=== PATIENT | female | born 1965 | race Caucasian/White ===

== ENCOUNTER → 2016-12-31 | Outpatient (CLI) | payer BC ==
[2016-12-31 08:32] LABS: ABSOLUTE EOSINOPHILS # (AUTO) 0.1 10^3/uL (0.0-0.6); ABSOLUTE LYMPHOCYTES (AUTO) 1.3 10^3/uL (0.5-4.7); ABSOLUTE MONOCYTES (AUTO) 0.4 10^3/uL (0.1-1.4); BASOPHILS % (AUTO) 0.3 % (0-2); EOSINOPHILS % (AUTO) 1.2 % (0-6); HEMATOCRIT 37.6 % (36.0-47.0); HEMOGLOBIN 12.4 g/dL (12.0-15.5); HGB HCT DIFFERENCE -0.4; LYMPHOCYTES % (AUTO) 18.8 % (13-45); MEAN CORPUSCULAR HEMOGLOBIN 28.6 pg (27.0-33.4); MEAN CORPUSCULAR HGB CONC 32.9 g/dL (32.0-36.0); MEAN CORPUSCULAR VOLUME 87 fl (80-97); MONOCYTES % (AUTO) 5.3 % (3-13); RED BLOOD COUNT 4.33 10^6/uL (3.72-5.28); RED CELL DISTRIBUTION WIDTH 14.1 % (11.5-14.0); SEGMENTED NEUTROPHILS % (AUTO) 74.4 % (42-78); WHITE BLOOD COUNT 6.7 10^3/uL (4.0-10.5)
[2016-12-31 09:04] LABS: ALANINE AMINOTRANSFERASE 56 U/L (9-52); ALBUMIN 4.3 g/dL (3.5-5.0); ALKALINE PHOSPHATASE 92 U/L (38-126); ANION GAP 14 (5-19); ASPARTATE AMINO TRANSFERASE 34 U/L (14-36); BILIRUBIN,DIRECT 0.4 mg/dL (0.0-0.4); BILIRUBIN,TOTAL 0.7 mg/dL (0.2-1.3); BLOOD UREA NITROGEN 16 mg/dL (7-20); CALCIUM 9.8 mg/dL (8.4-10.2); CARBON DIOXIDE 27 mmol/L (22-30); CHLORIDE 96 mmol/L (98-107); CHOLESTEROL 157.54 mg/dL (0-200); CREATININE RESULT 0.65 mg/dL (0.52-1.25); Direct HDL 47 mg/dL (>40); GLUCOSE 237 mg/dL (75-110); POTASSIUM 4.6 mmol/L (3.6-5.0); TOTAL PROTEIN 7.3 g/dL (6.3-8.2); TRIGLYCERIDES 196 mg/dL (<150)
[2016-12-31 09:15] LABS: DIRECT LDL 78 mg/dL (<100)
[2016-12-31 09:19] LABS: VLDL CHOLESTEROL 39.2 mg/dL (10-31)
[2017-01-01 10:38] LABS: CREATININE URINE 82.1 mg/dL (Not Estab.); MICROALBUMIN URINE 3.2 ug/mL (Not Estab.)
== END ==
LOC: OD 07:08
PROVIDERS: ATTEND Family Medicine Geriatric Medicine
DX: E11.9 Type 2 diabetes mellitus without complications (principal); I10 Essential (primary) hypertension; E78.5 Hyperlipidemia, unspecified; E03.9 Hypothyroidism, unspecified; Z79.899 Other long term (current) drug therapy
CPT/HCPCS: 36415; 80053; 80061; 82043; 82570; 83036; 84443; 85025

== ENCOUNTER → 2017-01-05 | Outpatient (CLI) | payer BC ==
--- NOTE | 2017-01-05 12:17 | WOMENS IMAGING REPORT ---
EXAM DESCRIPTION: BILAT SCREENING MAMMO W/CAD COMPLETED DATE/TIME: 01/05/2017 7:43 am REASON FOR STUDY: Z12.31, ROUTINE SCREENING MAMMO Z12.31 ENCNTR SCREEN MAMMOGRAM FOR MALIGNANT NEOP LASM OF ALO COMPARISON: 11/17/2014 TECHNIQUE: Standard craniocaudal and mediolateral oblique views of each breast recorded using digita l acquisition. LIMITATIONS: None. FINDINGS: Findings present which are benign by mammographic criteria. No suspicious masses, calcifi cations or architectural distortion. Pertinent benign findings: Benign bilateral breast parenchymal and skin calcifications Read with the assistance of CAD. .[facility] - R2 Cenova Version 1.3 .[facility] Imaging - R2 Cenova Version 1.3 .[facility] - R2 Cenova Version 2.4 .[facility] - R2 Cenova Version 2.4 .[facility] - R2 Histology Supervisor Version 9.2 Benign mammographic findings may include one or more of the following: Smooth masses, popcorn/rim/co arse calcifications, asymmetries, post-procedure changes, and lesions with long-standing stability. IMPRESSION: BENIGN MAMMOGRAPHIC FINDINGS. BIRADS 2 BREAST DENSITY: b. There are scattered areas of fibroglandular density. BIRAD: 2 BENIGN FINDING(S) RECOMMENDATION: ROUTINE SCREENING COMMENT: The patient has been notified of the results by letter per SA requirements. Additional no tification policies are in place for contacting patient with suspicious or incomplete findings. Quality ID #225: The [employer] recommends an annual screening mammogram for women aged 40 years or over. This facility utilizes a reminder system to ensure that all patients receive reminder letters, and/or direct phone calls for appointments. This includes reminders for routine scr eening mammograms, diagnostic mammograms, or other Breast Imaging Interventions when appropriate. Th is patient will be placed in the appropriate reminder system. The [employer] (ACR) has developed recommendations for screening MRI of the breast s in certain patient populations, to be used in conjunction with mammography. Breast MRI surveillanc e may be appropriate for women with more than 20% lifetime risk of developing breast cancer as deter mined by genetic testing, significant family history of the disease, or history of mantle radiation f or Hodgkins Disease. ACR Practice Guidelines 2008. TECHNICAL DOCUMENTATION: FINDING NUMBER: (1) ASSESSMENT: (1) JOB ID: [id number] [employer]- All Rights Reserved
== END ==
LOC: WI 06:55
PROVIDERS: ATTEND Family Medicine Geriatric Medicine
DX: Z12.31 Encounter for screening mammogram for malignant neoplasm of breast (principal)
CPT/HCPCS: 77067; G0202

== ENCOUNTER → 2017-03-12 | Outpatient (CLI) | payer BC ==
--- NOTE | 2017-03-12 16:54 | RADIOLOGY REPORT (SQ) ---
EXAM DESCRIPTION: CHEST PA/LATERAL COMPLETED DATE/TIME: 03/12/2017 4:45 pm REASON FOR STUDY: ACUTE BRONCHITIS, UNSPECIFIED COMPARISON: None. EXAM PARAMETERS: NUMBER OF VIEWS: two views TECHNIQUE: Digital Frontal and Lateral radiographic views of the chest acquired. RADIATION DOSE: NA LIMITATIONS: none FINDINGS: LUNGS AND PLEURA: 1.5 cm right upper lobe nodule superimposed on the upper hilum, partiall y calcified, likely a granuloma. No acute infiltrates. No pleural effusion. No pneumothorax. MEDIASTINUM AND HILAR STRUCTURES: No masses or contour abnormalities. HEART AND VASCULAR STRUCTURES: Heart normal size. No evidence for failure. BONES: Osteopenic. No thoracic compression deformity HARDWARE: None in the chest. OTHER: No other significant finding. IMPRESSION: Calcified granuloma right upper lobe. No acute infiltrates TECHNICAL DOCUMENTATION: JOB ID: [id number] [employer]- All Rights Reserved
== END ==
LOC: OD 16:24
PROVIDERS: ATTEND Internal Medicine
DX: J20.9 Acute bronchitis, unspecified (principal)
CPT/HCPCS: 71020

== ENCOUNTER → 2017-03-16 | Outpatient (CLI) | payer BC ==
--- NOTE | 2017-03-16 16:50 | RADIOLOGY REPORT (SQ) ---
EXAM DESCRIPTION: CT CHEST WITHOUT COMPLETED DATE/TIME: 03/16/2017 4:40 pm REASON FOR STUDY: ABN X RAY R93.8 ABNORMAL FINDINGS ON DIAGNOSTIC IMAGING OF BODY STRUCT COMPARISON: None. TECHNIQUE: CT scan performed of the chest without intravenous contrast. Images reviewed with lung, soft tissue and bone windows. Reconstructed coronal and sagittal MPR images reviewed. All images st ored on PACS. All CT scanners at this facility use dose modulation, iterative reconstruction, and/or weight based d osing when appropriate to reduce radiation dose to as low as reasonably achievable (ALARA). [facility]: Dose Right [facility]: CareDose [facility]: Dose Right [facility]: Teradose 4D [facility]: [employer] RADIATION DOSE: Up-to-date CT equipment and radiation dose reduction techniques were employed. CTDIv ol: 17.8 mGy. DLP: 712 mGy-cm. mGy. LIMITATIONS: No technical limitations. FINDINGS: LUNGS AND PLEURA: Calcified granulomata right lower lobe measuring just under 2 cm. No thompson spicious nodules. No effusions. HILAR AND MEDIASTINAL STRUCTURES: No identified masses or abnormal nodes. No obvious aneurysm. HEART AND VASCULAR STRUCTURES: No aneurysm. No pericardial effusion. UPPER ABDOMEN: Right adrenal nodule measuring about 2 cm with negative Hounsfield units. Prior gastr ic bypass. THYROID AND OTHER SOFT TISSUES: No masses. No adenopathy. BONES: No significant finding. HARDWARE: None in the chest. OTHER: No other significant findings. IMPRESSION: 1. Benign calcified granuloma. 2. Benign right adrenal adenoma. TECHNICAL DOCUMENTATION: JOB ID: [id number] Quality ID # 436: Final reports with documentation of one or more dose reduction techniques (e.g., Au tomated exposure control, adjustment of the mA and/or kV according to patient size, use of iterative reconstruction technique) 2010 [employer]- All Rights Reserved
== END ==
LOC: RAD 16:30
PROVIDERS: ATTEND Family Medicine Geriatric Medicine
DX: D35.01 Benign neoplasm of right adrenal gland (principal); R93.8 Abnormal findings on diagnostic imaging of other specified body structures; L92.9 Granulomatous disorder of the skin and subcutaneous tissue, unspecified
CPT/HCPCS: 71250

== ENCOUNTER → 2017-04-08 | Outpatient (CLI) | payer BC ==
[2017-04-09 10:38] LABS: MICROALBUMIN URINE <3.0 ug/mL (Not Estab.)
== END ==
LOC: OD 07:07
PROVIDERS: ATTEND Family Medicine Geriatric Medicine
DX: E11.9 Type 2 diabetes mellitus without complications (principal); I10 Essential (primary) hypertension; E78.5 Hyperlipidemia, unspecified; Z79.899 Other long term (current) drug therapy
CPT/HCPCS: 36415; 82043; 82570; 83036

== ENCOUNTER → 2017-04-28 | Outpatient (CLI) | payer BC ==
[2017-04-28 10:19] LABS: HEMATOCRIT 37.5 % (36.0-47.0); HEMOGLOBIN 12.7 g/dL (12.0-15.5); HGB HCT DIFFERENCE 0.6; MEAN CORPUSCULAR HEMOGLOBIN 28.6 pg (27.0-33.4); MEAN CORPUSCULAR HGB CONC 33.8 g/dL (32.0-36.0); MEAN CORPUSCULAR VOLUME 85 fl (80-97); RED BLOOD COUNT 4.44 10^6/uL (3.72-5.28); WHITE BLOOD COUNT 9.8 10^3/uL (4.0-10.5)
--- NOTE | 2017-04-28 10:30 | RADIOLOGY REPORT (SQ) ---
EXAM DESCRIPTION: KUB/ABDOMEN (SINGLE VIEW) COMPLETED DATE/TIME: 04/28/2017 10:16 am REASON FOR STUDY: ABDOMINAL PAIN/CONSTIPATION - SLOW TRANSIT COMPARISON: None. NUMBER OF VIEWS: One view. TECHNIQUE: Supine radiographic image of the abdomen acquired. LIMITATIONS: None. FINDINGS: BOWEL GAS PATTERN: Normal bowel gas pattern. No dilated loops. CALCIFICATIONS: No suspicious calcifications. SOFT TISSUES: No gross mass or suggestion of organomegaly. HARDWARE: None in the abdomen. BONES: No acute fracture. No worrisome bone lesions. OTHER: No other significant finding. IMPRESSION: NO RADIOGRAPHIC EVIDENCE FOR ACUTE ABDOMINAL DISEASE. TECHNICAL DOCUMENTATION: JOB ID: [id number] [employer]- All Rights Reserved
[2017-04-28 10:46] LABS: ALANINE AMINOTRANSFERASE 51 U/L (9-52); ALBUMIN 4.3 g/dL (3.5-5.0); ALKALINE PHOSPHATASE 81 U/L (38-126); ANION GAP 15 (5-19); ASPARTATE AMINO TRANSFERASE 26 U/L (14-36); BILIRUBIN,DIRECT 0.4 mg/dL (0.0-0.4); BILIRUBIN,TOTAL 0.5 mg/dL (0.2-1.3); BLOOD UREA NITROGEN 19 mg/dL (7-20); CALCIUM 10.8 mg/dL (8.4-10.2); CARBON DIOXIDE 30 mmol/L (22-30); CHLORIDE 97 mmol/L (98-107); CREATININE RESULT 0.85 mg/dL (0.52-1.25); GLUCOSE 231 mg/dL (75-110); SODIUM 141.9 mmol/L (137-145)
== END ==
LOC: RAD 09:44
PROVIDERS: ATTEND Physician Assistant Surgical
DX: R10.9 Unspecified abdominal pain (principal); K59.01 Slow transit constipation; R14.0 Abdominal distension (gaseous)
CPT/HCPCS: 36415; 74000; 80053; 85027

== ENCOUNTER → 2017-05-01 | Outpatient (CLI) | payer BC ==
--- NOTE | 2017-05-01 10:48 | RADIOLOGY REPORT (SQ) ---
EXAM DESCRIPTION: CT ABD/PELVIS WITH IV ORAL COMPLETED DATE/TIME: 05/01/2017 9:45 am REASON FOR STUDY: BLOATING/ABDOMINAL TENDERNESS GENERALIZED/CONSTIPATION R10.817 GENERALIZED ABDOMI NAL TENDERNESS K59.01 SLOW TRANSIT CONSTIPATION R14.0 ABDOMINAL DISTENSION (GASEOUS) COMPARISON: None. TECHNIQUE: CT scan of the abdomen and pelvis performed using helical scanning technique with dynamic intravenous contrast injection. No oral contrast. Images reviewed with lung, soft tissue, and bone windows. Reconstructed coronal and sagittal MPR images reviewed. Delayed images for evaluation of the urinary system also acquired. All images stored on PACS. All CT scanners at this facility use dose modulation, iterative reconstruction, and/or weight based d osing when appropriate to reduce radiation dose to as low as reasonably achievable (ALARA). [facility]: Dose Right [facility]: CareDose [facility]: Dose Right [facility]: Teradose 4D [facility]: [employer] CONTRAST TYPE AND DOSE: contrast/concentration: Isovue 370.00 mg/ml; Total Contrast Delivered: 100.0 ml; Total Saline Delivered: 72.0 ml RENAL FUNCTION: Creatinine 0.9 BUN 19 RADIATION DOSE: Up-to-date CT equipment and radiation dose reduction techniques were employed. CTDIv ol: 23.4 - 24.3 mGy. DLP: 2557 mGy-cm.. LIMITATIONS: None. FINDINGS: LOWER CHEST: No significant findings. No nodules or infiltrates. LIVER: Hepatomegaly. No masses. SPLEEN: Normal size. No focal lesions. PANCREAS: No masses. No significant calcifications. No adjacent inflammation or peripancreatic fluid collections. Pancreatic duct not dilated. GALLBLADDER: Surgically absent. ADRENAL GLANDS: There is a 25 mm right adrenal nodule. This was shown to be quite low in density on the noncontrast chest CT of March 16. RIGHT KIDNEY AND URETER: No solid masses. No significant calcifications. No hydronephrosis or hyd roureter. LEFT KIDNEY AND URETER: No solid masses. No significant calcifications. No hydronephrosis or hydr oureter. AORTA AND VESSELS: No aneurysm. No dissection. Renal arteries, SMA, celiac without stenosis. RETROPERITONEUM: No retroperitoneal adenopathy, hemorrhage or masses. BOWEL AND PERITONEAL CAVITY: Surgical suture is present in the upper stomach and in the small bowel o n the left. No masses are present. No inflammatory changes APPENDIX: Normal. PELVIS: No mass. No free fluid. Normal bladder. ABDOMINAL WALL: No masses. No hernias. BONES: No significant or acute findings. OTHER: No other significant finding. IMPRESSION: Right adrenal nodule, likely adenoma. No acute abnormality is seen in the abdomen or pe lvis. TECHNICAL DOCUMENTATION: JOB ID: [id number] Quality ID # 436: Final reports with documentation of one or more dose reduction techniques (e.g., Au tomated exposure control, adjustment of the mA and/or kV according to patient size, use of iterative reconstruction technique) 2010 [employer]- All Rights Reserved
== END ==
LOC: RAD 09:04
PROVIDERS: ATTEND Internal Medicine Gastroenterology
DX: K59.01 Slow transit constipation (principal); E27.8 Other specified disorders of adrenal gland; R10.817 Generalized abdominal tenderness; R14.0 Abdominal distension (gaseous)
CPT/HCPCS: 74177

== ENCOUNTER → 2017-07-01 | Outpatient (CLI) | payer BC ==
[2017-07-01 08:07] LABS: ABSOLUTE EOSINOPHILS # (AUTO) 0.1 10^3/uL (0.0-0.6); ABSOLUTE LYMPHOCYTES (AUTO) 1.6 10^3/uL (0.5-4.7); ABSOLUTE MONOCYTES (AUTO) 0.4 10^3/uL (0.1-1.4); BASOPHILS % (AUTO) 0.3 % (0-2); EOSINOPHILS % (AUTO) 1.2 % (0-6); HEMATOCRIT 34.2 % (36.0-47.0); HEMOGLOBIN 11.7 g/dL (12.0-15.5); HGB HCT DIFFERENCE 0.9; LYMPHOCYTES % (AUTO) 19.7 % (13-45); MEAN CORPUSCULAR HEMOGLOBIN 29.2 pg (27.0-33.4); MEAN CORPUSCULAR HGB CONC 34.2 g/dL (32.0-36.0); MEAN CORPUSCULAR VOLUME 86 fl (80-97); MONOCYTES % (AUTO) 5.1 % (3-13); RED CELL DISTRIBUTION WIDTH 15.2 % (11.5-14.0); SEGMENTED NEUTROPHILS % (AUTO) 73.7 % (42-78); WHITE BLOOD COUNT 8.1 10^3/uL (4.0-10.5)
[2017-07-01 08:25] LABS: ALANINE AMINOTRANSFERASE 53 U/L (9-52); ALBUMIN 4.1 g/dL (3.5-5.0); ALKALINE PHOSPHATASE 85 U/L (38-126); ANION GAP 12 (5-19); ASPARTATE AMINO TRANSFERASE 29 U/L (14-36); BILIRUBIN,DIRECT 0.3 mg/dL (0.0-0.4); BILIRUBIN,TOTAL 0.4 mg/dL (0.2-1.3); BLOOD UREA NITROGEN 21 mg/dL (7-20); CALCIUM 9.6 mg/dL (8.4-10.2); CARBON DIOXIDE 29 mmol/L (22-30); CHLORIDE 97 mmol/L (98-107); CHOLESTEROL 147.65 mg/dL (0-200); CREATININE RESULT 0.73 mg/dL (0.52-1.25); Direct HDL 46 mg/dL (>40); GLUCOSE 260 mg/dL (75-110); POTASSIUM 4.2 mmol/L (3.6-5.0); SODIUM 137.9 mmol/L (137-145); TOTAL PROTEIN 6.7 g/dL (6.3-8.2); TRIGLYCERIDES 205 mg/dL (<150)
[2017-07-01 08:37] LABS: DIRECT LDL 80 mg/dL (<100)
== END ==
LOC: OD 07:12
PROVIDERS: ATTEND Family Medicine Geriatric Medicine
DX: E11.40 Type 2 diabetes mellitus with diabetic neuropathy, unspecified (principal); I10 Essential (primary) hypertension; E03.9 Hypothyroidism, unspecified; E78.5 Hyperlipidemia, unspecified; Z79.899 Other long term (current) drug therapy
CPT/HCPCS: 36415; 80053; 80061; 83036; 84443; 85025

== ENCOUNTER → 2017-12-04 | Outpatient (CLI) | payer BC ==
--- NOTE | 2017-12-04 08:48 | RADIOLOGY REPORT (SQ) ---
EXAM DESCRIPTION: CT CHEST WITH COMPLETED DATE/TIME: 12/04/2017 8:33 am REASON FOR STUDY: BENIGN NEOPLASM OF RIGHT ADRENAL GLAND D35.01 BENIGN NEOPLASM OF RIGHT ADRENAL GL AND J84.10 PULMONARY FIBROSIS, UNSPECIFIED COMPARISON: 03/16/2017. TECHNIQUE: CT scan of the chest performed using helical scanning technique with dynamic intravenous contrast injection. Images reviewed with lung, soft tissue and bone windows. Reconstructed coronal and sagittal MPR images reviewed. All images stored on PACS. All CT scanners at this facility use dose modulation, iterative reconstruction, and/or weight based d osing when appropriate to reduce radiation dose to as low as reasonably achievable (ALARA). [facility]: Dose Right [facility]: CareDose [facility]: Dose Right [facility]: Teradose 4D [facility]: [employer] CONTRAST TYPE AND DOSE: 100 mL Isovue 370- low osmolar. RENAL FUNCTION: Creatinine 0.6. RADIATION DOSE: . LIMITATIONS: None. FINDINGS: LUNGS AND PLEURA: Stable heavily calcified nodule in the posterior right lower lobe, curre nt measurement 1.5 cm. No new nodules or masses. No infiltrates. No pneumothorax. No effusions. HILAR AND MEDIASTINAL STRUCTURES: No identified masses or abnormal nodes. HEART AND VASCULAR STRUCTURES: No aneurysm or dissection. No central pulmonary emboli. No pericardi al effusion. HARDWARE: None in the chest. UPPER ABDOMEN: See separate report of the CT of the abdomen. THYROID AND OTHER SOFT TISSUES: No masses. No adenopathy. BONES: No significant finding. OTHER: No other significant finding. IMPRESSION: STABLE CT OF THE CHEST WITH IV CONTRAST. HEAVILY CALCIFIED NODULE IN THE POSTERIOR RIGH T LOWER LOBE, PROBABLY CALCIFIED GRANULOMA OR HAMARTOMA, UNCHANGED. TECHNICAL DOCUMENTATION: JOB ID: [id number] Quality ID # 436: Final reports with documentation of one or more dose reduction techniques (e.g., Au tomated exposure control, adjustment of the mA and/or kV according to patient size, use of iterative reconstruction technique) 2010 [employer]- All Rights Reserved Reading location - IP/workstation name: [email or web address]
--- NOTE | 2017-12-04 08:53 | RADIOLOGY REPORT (SQ) ---
EXAM DESCRIPTION: CT ABD/PELVIS WITH IV ORAL COMPLETED DATE/TIME: 12/04/2017 8:33 am REASON FOR STUDY: BENIGN NEOPLASM OF RIGHT ADRENAL GLAND D35.01 BENIGN NEOPLASM OF RIGHT ADRENAL GL AND J84.10 PULMONARY FIBROSIS, UNSPECIFIED COMPARISON: 05/01/2017. TECHNIQUE: CT scan of the abdomen and pelvis performed using helical scanning technique with dynamic intravenous contrast injection. No oral contrast. Images reviewed with lung, soft tissue, and bone windows. Reconstructed coronal and sagittal MPR images reviewed. Delayed images for evaluation of the urinary system also acquired. All images stored on PACS. All CT scanners at this facility use dose modulation, iterative reconstruction, and/or weight based d osing when appropriate to reduce radiation dose to as low as reasonably achievable (ALARA). [facility]: Dose Right [facility]: CareDose [facility]: Dose Right [facility]: Teradose 4D [facility]: [employer] CONTRAST TYPE AND DOSE: contrast/concentration: Isovue 370.00 mg/ml; Total Contrast Delivered: 100.0 ml; Total Saline Delivered: 72.0 ml RENAL FUNCTION: Creatinine 0.6. RADIATION DOSE: CT Rad equipment meets quality standard of care and radiation dose reduction techniq ues were employed. CTDIvol: 15.2 - 23.8 mGy. DLP: 3193 mGy-cm.. LIMITATIONS: None. FINDINGS: LOWER CHEST: No significant findings. No nodules or infiltrates. LIVER: Enlarged, measuring 22 cm. Diffuse fatty infiltration. No masses. No dilated ducts. SPLEEN: Normal size. No focal lesions. PANCREAS: No masses. No significant calcifications. No adjacent inflammation or peripancreatic fluid collections. Pancreatic duct not dilated. GALLBLADDER: Surgically absent. ADRENAL GLANDS: Stable low-attenuation right adrenal nodule measuring 2.3 cm. RIGHT KIDNEY AND URETER: No solid masses. No significant calcifications. No hydronephrosis or hyd roureter. LEFT KIDNEY AND URETER: No solid masses. No significant calcifications. No hydronephrosis or hydr oureter. AORTA AND VESSELS: No aneurysm. No dissection. Renal arteries, SMA, celiac without stenosis. RETROPERITONEUM: No retroperitoneal adenopathy, hemorrhage or masses. BOWEL AND PERITONEAL CAVITY: Previous gastric bypass. No masses or inflammatory changes. No free flu id or peritoneal masses. APPENDIX: Normal. PELVIS: No mass. No free fluid. Normal bladder. ABDOMINAL WALL: No masses. No hernias. BONES: No significant or acute findings. OTHER: No other significant finding. IMPRESSION: 1. STABLE LOW-ATTENUATION RIGHT ADRENAL NODULE MOST LIKELY AN INCIDENTAL ADENOMA. 2. HEPATOMEGALY WITH DIFFUSE FATTY INFILTRATION OF THE LIVER. PREVIOUS GASTRIC BYPASS. NO OTHER SIG NIFICANT OR ACUTE FINDING IN THE ABDOMEN OR PELVIS ON CT SCAN WITH IV CONTRAST. TECHNICAL DOCUMENTATION: JOB ID: [id number] Quality ID # 436: Final reports with documentation of one or more dose reduction techniques (e.g., Au tomated exposure control, adjustment of the mA and/or kV according to patient size, use of iterative reconstruction technique) 2010 [employer]- All Rights Reserved Reading location - IP/workstation name: [email or web address]
== END ==
LOC: RAD 07:32
PROVIDERS: ATTEND Family Medicine Geriatric Medicine
DX: D35.01 Benign neoplasm of right adrenal gland (principal); J84.10 Pulmonary fibrosis, unspecified
CPT/HCPCS: 71260; 74177; 82565

== ENCOUNTER → 2018-04-13 | Outpatient (CLI) | payer BC ==
[2018-04-13 09:02] LABS: ALANINE AMINOTRANSFERASE 36 U/L (9-52); ANION GAP 10 (5-19); ASPARTATE AMINO TRANSFERASE 22 U/L (14-36); BLOOD UREA NITROGEN 18 mg/dL (7-20); CALCIUM 10.2 mg/dL (8.4-10.2); CARBON DIOXIDE 30 mmol/L (22-30); CHLORIDE 98 mmol/L (98-107); CHOLESTEROL 144.95 mg/dL (0-200); GLUCOSE 195 mg/dL (75-110); POTASSIUM 4.4 mmol/L (3.6-5.0); SODIUM 138.1 mmol/L (137-145); TRIGLYCERIDES 229 mg/dL (<150); URIC ACID 4.9 mg/dL (2.5-7.5)
[2018-04-13 09:13] LABS: DIRECT LDL 72 mg/dL (<100)
[2018-04-13 09:17] LABS: VLDL CHOLESTEROL 45.8 mg/dL (10-31)
== END ==
LOC: OD 07:15
PROVIDERS: ATTEND Family Medicine Geriatric Medicine
DX: E78.5 Hyperlipidemia, unspecified (principal); I10 Essential (primary) hypertension; E11.40 Type 2 diabetes mellitus with diabetic neuropathy, unspecified; K21.9 Gastro-esophageal reflux disease without esophagitis; J84.10 Pulmonary fibrosis, unspecified; E03.9 Hypothyroidism, unspecified
CPT/HCPCS: 36415; 80048; 80061; 83036; 84443; 84450; 84460; 84550

== ENCOUNTER → 2018-07-07 | Outpatient (CLI) | payer BC ==
[2018-07-07 08:44] LABS: ANION GAP 10 (5-19); BLOOD UREA NITROGEN 17 mg/dL (7-20); CALCIUM 9.5 mg/dL (8.4-10.2); CARBON DIOXIDE 30 mmol/L (22-30); CHLORIDE 100 mmol/L (98-107); GLUCOSE 198 mg/dL (75-110); POTASSIUM 4.2 mmol/L (3.6-5.0); SODIUM 140.3 mmol/L (137-145)
[2018-07-08 11:39] LABS: CREATININE URINE 278.6 mg/dL (Not Estab.); MICROALBUMIN URINE 12.8 ug/mL (Not Estab.)
== END ==
LOC: OD 07:03
PROVIDERS: ATTEND Family Medicine Geriatric Medicine
DX: I10 Essential (primary) hypertension (principal); E11.9 Type 2 diabetes mellitus without complications
CPT/HCPCS: 36415; 80048; 82043; 82570; 83036

== ENCOUNTER → 2018-07-12 | Outpatient (CLI) | payer BC ==
--- NOTE | 2018-07-12 09:13 | RADIOLOGY REPORT (SQ) ---
EXAM DESCRIPTION: CT CHEST WITH; CT ABD/PELVIS WITH IV ORAL COMPLETED DATE/TIME: 07/12/2018 8:26 am REASON FOR STUDY: D35.01 BENIGN NEOPLASM OF RIGHT ADRENAL GLAND D35.01 BENIGN NEOPLASM OF RIGHT ADR ENAL GLAND COMPARISON: CT chest abdomen pelvis 12/04/2017 CT chest 03/16/2017 CT chest 04/28/2017 CONTRAST TYPE AND DOSE: contrast/concentration: Isovue 350.00 mg/ml; Total Contrast Delivered: 100.0 ml; Total Saline Delivered: 72.0 ml RENAL FUNCTION: Creatinine 0.73 TECHNIQUE: CT scan of the chest performed using helical scanning technique with dynamic intravenous contrast injection. Images reviewed with lung, soft tissue and bone windows. Reconstructed coronal a nd sagittal MPR images reviewed. All images stored on PACS. CT scan of the abdomen and pelvis performed with intravenous and with oral contrastusing helical scan tracey technique with dynamic intravenous contrast injection. Images reviewed with lung, soft tissue a nd bone windows. Reconstructed coronal and sagittal MPR images reviewed. Delayed images for evaluat ion of the urinary system also acquired and evaluated. All images stored on PACS. All CT scanners at this facility use dose modulation, iterative reconstruction, and/or weight based d osing when appropriate to reduce radiation dose to as low as reasonably achievable (ALARA). [facility]: Dose Right [facility]: CareDose [facility]: Dose Right [facility]: Teradose 4D [facility]: [employer] RADIATION DOSE: CT Rad equipment meets quality standard of care and radiation dose reduction techniq ues were employed. CTDIvol: 15.7 - 24.0 mGy. DLP: 3110 mGy-cm. . LIMITATIONS: None. FINDINGS: CHEST: LUNGS AND PLEURA: 1.5 cm calcified granuloma right lower lobe axial image 57 unchanged. No worrisome pulmonary nodules. No acute infiltrates. No pleural effusion. HILAR AND MEDIASTINAL STRUCTURES: No identified masses or abnormal nodes. HEART AND VASCULAR STRUCTURES: No aneurysm or dissection. No central pulmonary emboli. No pericardi al effusion. Mild coronary artery calcification HARDWARE: None. THYROID AND OTHER SOFT TISSUES: No masses. No adenopathy. BONES: No significant finding. OTHER: No other significant finding. ABDOMEN AND PELVIS: LIVER: Normal size. No masses. No dilated ducts. SPLEEN: Normal size. No focal lesions. PANCREAS: No masses. No significant calcifications. No adjacent inflammation or peripancreatic fluid collections. Pancreatic duct not dilated. GALLBLADDER: Surgically absent ADRENAL GLANDS: Stable 2.3 cm right adrenal nodule. No left adrenal nodule RIGHT KIDNEY AND URETER: No solid masses. No significant calcification. No hydronephrosis or hydroure ter. LEFT KIDNEY AND URETER: No solid masses. 2 cm left upper pole renal cortical cyst. 3 to 4 mm left l ower pole intrarenal nonobstructive stone. No hydronephrosis or hydroureter. AORTA AND VESSELS: No aneurysm. No dissection. Renal arteries, SMA, celiac without stenosis. RETROPERITONEUM: No retroperitoneal adenopathy, hemorrhage or masses. BOWEL AND PERITONEAL CAVITY: Patient drank oral contrast. Gastric bypass is present. There is wall thickening of the gastric pouch outlet and proximal gastric outlet Mj loop. Consider endoscopy or upper GI for followup if the patient has epigastric pain. No CT evidence of bowel obstruction or jairo e intraperitoneal air or fluid. APPENDIX: Normal. ABDOMINAL WALL: No masses. No hernias. PELVIS: No mass or free fluid. Normal bladder. Post hysterectomy BONES: No significant or acute findings. OTHER: No other significant finding. IMPRESSION: Stable calcified granuloma right lower lobe Stable 2.3 cm right adrenal nodule Wall thickening along the gastric outlet Mj loop. Consider upper GI or endoscopic follow-up NORMAL CT OF THE ABDOMEN AND PELVIS WITH ORAL AND INTRAVENOUS CONTRAST. TECHNICAL DOCUMENTATION: JOB ID: [id number] Quality ID # 436: Final reports with documentation of one or more dose reduction techniques (e.g., Au tomated exposure control, adjustment of the mA and/or kV according to patient size, use of iterative reconstruction technique) 2010 [employer]- All Rights Reserved Reading location - IP/workstation name: [email or web address]
== END ==
LOC: RAD 08:00
PROVIDERS: ATTEND Family Medicine Geriatric Medicine
DX: D35.01 Benign neoplasm of right adrenal gland (principal)
CPT/HCPCS: 71260; 74177

== ENCOUNTER → 2018-10-06 | Outpatient (CLI) | payer BC ==
[2018-10-06 08:47] LABS: ALANINE AMINOTRANSFERASE 43 U/L (9-52); ASPARTATE AMINO TRANSFERASE 24 U/L (14-36)
== END ==
LOC: OD 07:08
PROVIDERS: ATTEND Family Medicine Geriatric Medicine
DX: R79.89 Other specified abnormal findings of blood chemistry (principal); E11.9 Type 2 diabetes mellitus without complications; Z79.899 Other long term (current) drug therapy
CPT/HCPCS: 36415; 83036; 84450; 84460

== ENCOUNTER → 2018-10-16 | Outpatient (CLI) | payer BC ==
--- NOTE | 2018-10-16 13:48 | RADIOLOGY REPORT (SQ) ---
EXAM DESCRIPTION: SHOULDER LEFT 2 OR MORE VIEWS COMPLETED DATE/TIME: 10/16/2018 11:38 am REASON FOR STUDY: NECK PAIN (m54.2)/ L SHOULDER PAIN (M25.512) M25.512 PAIN IN LEFT SHOULDER M54.2 CERVICALGIA Injury at the end of August, persistent left shoulder pain COMPARISON: None. NUMBER OF VIEWS: Three views. TECHNIQUE: Internal rotation, external rotation, and Y view images acquired of the left shoulder. LIMITATIONS: None. FINDINGS: MINERALIZATION: Osteopenic BONES: No acute fracture or dislocation. No worrisome bone lesions. Mild bony spurring at along the lateral edge of the acromion, and along the greater tuberosity left humeral head JOINTS: No glenohumeral dislocation. No acromioclavicular joint malalignment VISUALIZED LUNGS AND RIBS: No pneumothorax. No rib fracture. SOFT TISSUES: No radiopaque foreign body. OTHER: No other significant finding. IMPRESSION: No acute findings TECHNICAL DOCUMENTATION: JOB ID: [id number] [employer]- All Rights Reserved Reading location - IP/workstation name: [email or web address]
--- NOTE | 2018-10-16 13:50 | RADIOLOGY REPORT (SQ) ---
EXAM DESCRIPTION: CERV SP 4 OR 5 VIEWS COMPLETED DATE/TIME: 10/16/2018 11:38 am REASON FOR STUDY: NECK PAIN (m54.2)/ L SHOULDER PAIN (M25.512) M25.512 PAIN IN LEFT SHOULDER M54.2 CERVICALGIA COMPARISON: None. NUMBER OF VIEWS: Five views. TECHNIQUE: AP, lateral, obliques and odontoid radiographic images acquired of the cervical spine. LIMITATIONS: None. FINDINGS: MINERALIZATION: Normal. ALIGNMENT: Anatomic. VERTEBRAE: Vertebral bodies of normal height. DISCS: Disc space loss of height with very mild anterior and posterior osteophyte formation at C6-7 FORAMINA: Mild bilateral foraminal narrowing at C6-7 right greater than left LATERAL AND POSTERIOR ELEMENTS: Facets, lateral masses and spinous processes without significant find ings. HARDWARE: None in the spine. SOFT TISSUES: No masses or calcifications. Lung apices clear. OTHER: No other significant finding. IMPRESSION: Degenerative disc changes at C6-7 TECHNICAL DOCUMENTATION: JOB ID: [id number] [employer]- All Rights Reserved Reading location - IP/workstation name: [email or web address]
== END ==
LOC: RAD 11:07
PROVIDERS: ATTEND Family Medicine Geriatric Medicine
DX: M25.512 Pain in left shoulder (principal); M54.2 Cervicalgia
CPT/HCPCS: 72050

== ENCOUNTER → 2018-12-11 | Outpatient (CLI) | payer BC ==
--- NOTE | 2018-12-11 15:20 | RADIOLOGY REPORT (SQ) ---
EXAM DESCRIPTION: MRI CERVICAL SPINE WITHOUT COMPLETED DATE/TIME: 12/11/2018 11:08 am REASON FOR STUDY: CERVICAL DISORDER WITH RADICULOPATHY M50.10 CERVICAL DISC DISORDER W RADICULOPATH Y, UNSP CERVICAL COMPARISON: None. TECHNIQUE: Sagittal and Axial imaging includes T1, T2, STIR and gradient echo sequences. LIMITATIONS: Motion. FINDINGS: ALIGNMENT: Straightening of the lordotic curve. VERTEBRAE: Intact. BONE MARROW: Normal. No marrow replacement or reactive changes. DISCS: Desiccation multiple levels. Disc space narrowing C6-7. HARDWARE: None in the spine. CORD AND BASE OF BRAIN: Normal in size and signal intensity. SOFT TISSUES: No soft tissue masses. C1-C2: No significant spinal stenosis. C2-C3: No significant spinal stenosis or exit foraminal stenosis. C3-C4: No significant spinal stenosis or exit foraminal stenosis. C4-C5: Mild left and moderate right neural foraminal narrowing due to uncovertebral arthropathy. C5-C6: Mild spinal stenosis due to central small disc protrusion and uncovertebral arthropathy. Mild neural foraminal narrowing bilaterally. C6-C7: Mild spinal stenosis. Moderate neural foraminal narrowing bilaterally. C7-T1: No significant stenosis. UPPER THORACIC: Incompletely imaged. No significant spinal stenosis or exit foraminal stenosis. OTHER: No other significant finding. IMPRESSION: Mild spinal stenosis C5- 6 and C6-7. TECHNICAL DOCUMENTATION: JOB ID: [id number] [employer]- All Rights Reserved Reading location - IP/workstation name: [email or web address]
== END ==
LOC: RAD 10:25
PROVIDERS: ATTEND Orthopaedic Surgery
DX: M50.10 Cervical disc disorder with radiculopathy, unspecified cervical region (principal); M48.02 Spinal stenosis, cervical region
CPT/HCPCS: 72141

== ENCOUNTER → 2019-01-21 | Outpatient (CLI) | payer BC ==
[2019-01-22 11:37] LABS: CREATININE URINE 242.3 mg/dL (Not Estab.); MICROALBUMIN URINE 12.9 ug/mL (Not Estab.)
== END ==
LOC: OD 08:30
PROVIDERS: ATTEND Family Medicine Geriatric Medicine
DX: E11.9 Type 2 diabetes mellitus without complications (principal); Z79.899 Other long term (current) drug therapy
CPT/HCPCS: 36415; 82043; 82570; 83036

== ENCOUNTER → 2019-05-07 | Outpatient (CLI) | payer BC ==
[2019-05-07 10:16] LABS: BLOOD UREA NITROGEN 17 mg/dL (7-20); CALCIUM 9.6 mg/dL (8.4-10.2); CARBON DIOXIDE 28 mmol/L (22-30); CHLORIDE 102 mmol/L (98-107); GLUCOSE 125 mg/dL (75-110); POTASSIUM 4.4 mmol/L (3.6-5.0)
[2019-05-07 10:17] LABS: ANION GAP 10 (5-19); ASPARTATE AMINO TRANSFERASE 45 U/L (14-36); CHOLESTEROL 159.93 mg/dL (0-200); TRIGLYCERIDES 199 mg/dL (<150)
[2019-05-07 10:27] LABS: DIRECT LDL 96 mg/dL (<100)
[2019-05-07 10:28] LABS: VLDL CHOLESTEROL 39.8 mg/dL (10-31)
== END ==
LOC: OD 08:47
PROVIDERS: ATTEND Family Medicine Geriatric Medicine
DX: E11.40 Type 2 diabetes mellitus with diabetic neuropathy, unspecified (principal); E03.9 Hypothyroidism, unspecified; E78.5 Hyperlipidemia, unspecified; I10 Essential (primary) hypertension; Z79.899 Other long term (current) drug therapy
CPT/HCPCS: 36415; 80048; 80061; 83036; 84443; 84450; 84460

== ENCOUNTER → 2019-11-10 | Outpatient (CLI) | payer BC ==
[2019-11-10 08:51] LABS: ABSOLUTE EOSINOPHILS # (AUTO) 0.1 10^3/uL (0.0-0.6); ABSOLUTE LYMPHOCYTES (AUTO) 1.4 10^3/uL (0.5-4.7); ABSOLUTE MONOCYTES (AUTO) 0.6 10^3/uL (0.1-1.4); ABSOLUTE NEUT (AUTO) 5.6 10^3/uL (1.7-8.2); BASOPHILS % (AUTO) 0.3 % (0-2); EOSINOPHILS % (AUTO) 1.5 % (0-6); HEMATOCRIT 32.4 % (36.0-47.0); HEMOGLOBIN 10.6 g/dL (12.0-15.5); LYMPHOCYTES % (AUTO) 18.6 % (13-45); MEAN CORPUSCULAR HEMOGLOBIN 22.9 pg (27.0-33.4); MEAN CORPUSCULAR HGB CONC 32.7 g/dL (32.0-36.0); MEAN CORPUSCULAR VOLUME 70 fl (80-97); MONOCYTES % (AUTO) 7.3 % (3-13); PLATELET COUNT 399 10^3/uL (150-450); RED BLOOD COUNT 4.63 10^6/uL (3.72-5.28); RED CELL DISTRIBUTION WIDTH 16.7 % (11.5-14.0); SEGMENTED NEUTROPHILS % (AUTO) 72.3 % (42-78); TOTAL CELLS COUNTED % (AUTO) 100 %; WHITE BLOOD COUNT 7.8 10^3/uL (4.0-10.5)
[2019-11-10 09:22] LABS: ALBUMIN 3.9 g/dL (3.5-5.0); ALKALINE PHOSPHATASE 89 U/L (38-126); ANION GAP 11 (5-19); ASPARTATE AMINO TRANSFERASE 19 U/L (14-36); BILIRUBIN,TOTAL 0.4 mg/dL (0.2-1.3); BLOOD UREA NITROGEN 20 mg/dL (7-20); CALCIUM 9.4 mg/dL (8.4-10.2); CARBON DIOXIDE 27 mmol/L (22-30); CHLORIDE 97 mmol/L (98-107); CHOLESTEROL 125.44 mg/dL (0-200); GLUCOSE 126 mg/dL (75-110); POTASSIUM 4.5 mmol/L (3.6-5.0); TOTAL PROTEIN 6.7 g/dL (6.3-8.2); TRIGLYCERIDES 141 mg/dL (<150)
[2019-11-10 09:33] LABS: DIRECT LDL 66 mg/dL (<100)
[2019-11-11 07:37] LABS: CREATININE URINE 63.1 mg/dL (Not Estab.)
[2019-11-11 08:35] LABS: MICROALBUMIN URINE <3.0 ug/mL (Not Estab.)
== END ==
LOC: OD 07:53
PROVIDERS: ATTEND Family Medicine Geriatric Medicine
DX: E11.40 Type 2 diabetes mellitus with diabetic neuropathy, unspecified (principal); E78.5 Hyperlipidemia, unspecified; I10 Essential (primary) hypertension; E03.9 Hypothyroidism, unspecified; R79.89 Other specified abnormal findings of blood chemistry; Z79.899 Other long term (current) drug therapy
CPT/HCPCS: 36415; 80053; 80061; 82043; 82570; 83036; 85025

== ENCOUNTER → 2020-03-01 | Outpatient (CLI) | payer BC ==
[2020-03-01 08:09] LABS: ABSOLUTE EOSINOPHILS # (AUTO) 0.2 10^3/uL (0.0-0.6); ABSOLUTE LYMPHOCYTES (AUTO) 1.5 10^3/uL (0.5-4.7); ABSOLUTE MONOCYTES (AUTO) 0.6 10^3/uL (0.1-1.4); ABSOLUTE NEUT (AUTO) 6.4 10^3/uL (1.7-8.2); BASOPHILS % (AUTO) 0.2 % (0-2); HEMATOCRIT 26.8 % (36.0-47.0); HEMOGLOBIN 8.4 g/dL (12.0-15.5); LYMPHOCYTES % (AUTO) 17.1 % (13-45); MEAN CORPUSCULAR HEMOGLOBIN 19.8 pg (27.0-33.4); MEAN CORPUSCULAR HGB CONC 31.3 g/dL (32.0-36.0); MONOCYTES % (AUTO) 6.6 % (3-13); PLATELET COUNT 422 10^3/uL (150-450); RED BLOOD COUNT 4.24 10^6/uL (3.72-5.28); RED CELL DISTRIBUTION WIDTH 18.5 % (11.5-14.0); SEGMENTED NEUTROPHILS % (AUTO) 74.1 % (42-78); TOTAL CELLS COUNTED % (AUTO) 100 %; WHITE BLOOD COUNT 8.6 10^3/uL (4.0-10.5)
[2020-03-01 08:50] LABS: ANISOCYTOSIS 1+; HYPOCHROMASIA 2+; MEAN CORPUSCULAR VOLUME 63 fl (80-97); OVALOCYTES 1+; POIKILOCYTOSIS 1+; POLYCHROMASIA 1+; SCHISTOCYTES SLIGHT; TEAR DROP CELLS SLIGHT; TOXIC GRANULATION SLIGHT
[2020-03-01 08:51] LABS: PLATELET COMMENT ADEQUATE
== END ==
LOC: OD 07:12
PROVIDERS: ATTEND Family Medicine Geriatric Medicine
DX: D64.9 Anemia, unspecified (principal); E11.21 Type 2 diabetes mellitus with diabetic nephropathy; Z79.899 Other long term (current) drug therapy
CPT/HCPCS: 36415; 83036; 85025

== ENCOUNTER 2020-05-22 02:25 | Emergency (ER) | payer BC ==
--- NOTE | 2020-05-22 07:24 | ER Document Report ---
ED General - General Chief Complaint: Leg Injury Stated Complaint: BLEEDING VEIN IN LEG Time Seen by Provider: 05/22/20 06:35 Primary Care Provider: SUSANNE GLASS MD [Primary Care Provider] - Follow up as needed TRAVEL OUTSIDE OF THE [place] IN LAST 30 DAYS: No - HPI Notes: CC: Bleeding varicose vein LLE HPI: 55 y.o. F with hx. bilat. LE venous insuf., DM, HTN, HLD and old CVA on ASA developed spontaneous bleeding vein LLE >6 hrs. ago at home w/o perceived trauma. Moderte bleeding controlled with pressure. Quick clot and pressure dressing by EMS. No further bleeding. No prior epsiodes. Non-smoker. - Related Data Allergies/Adverse Reactions: No Known Allergies Allergy (Unverified 05/22/20 02:37) Home Medications: DIABETIC. HIGH LIPIDS. SLEEP APNEA. ASA Past Medical History - General Information source: Patient, Relative - Social History Smoking Status: Former Smoker Frequency of alcohol use: None Drug Abuse: None Family History: Reviewed & Not Pertinent - Past Medical History Cardiac Medical History: Reports: Hx Hypercholesterolemia, Hx Hypertension Pulmonary Medical History: Reports: None Neurological Medical History: Reports: Hx Cerebrovascular Accident Endocrine Medical History: Reports: Hx Diabetes Mellitus Type 2 Surgical Hx: Negative Review of Systems - Review of Systems Notes: ROS Gen: No fever HEENT: Neg Skin: NO rashes Resp: No SOB Cardiac: No CP GI: No abd. pain : No dysuria MuscSkel: Arthralgias Neuro: No focal weakness, SNOW Endo:DM well-controlled 10 point ROS otherwise neg. Physical Exam - Vital signs Vitals: Temp Pulse Resp BP Pulse Ox 97.6 F 91 20 147/61 H 97 05/22/20 02:31 05/22/20 02:31 05/22/20 02:31 05/22/20 02:31 05/22/20 02:31 - Notes Notes: Gen- WDWN F of approx stated age in NAD HEENT normal Neck- no JVD Chest- Clear/equal breath sounds Heart- RR w/o murmur Abd- soft, nontender, mildly obese EXT- 1+ pretib. edema bilat. Varicose veins both LE. Bandage removed LLE with pin-point area venous oozing. Neuro- GCS 15. Non-focal Skin-no rashes Course - Re-evaluation Re-evalutation: 05/22/20 08:20 I remove the EMS dressing and the patient had a pinpoint area of minimal oozing. I placed a Band-Aid dressing on this and reapplied a pressure dressing. She is hemodynamically stable. Her hemoglobin is 11.9 g. Her white count is normal. Platelets and PT/PTT are normal. She takes aspirin. I went back and remove the pressure dressing and the Band-Aid is dry with no further bleeding. Ask her to keep this on. She is going to elevate her legs and apply ice packs at home. She will follow-up with her primary care doctor within the next 24 hours and is to keep a Band-Aid in place until then. She is instructed to apply direct pressure and an Brian wrap if she has any recurrence of bleeding and she can course return here in other circumstances. We will have her hold her aspirin and also put her on 20 mg of Lasix daily. I told her she will need to get a vascular surgery referral outpatient to be arranged by her primary care physician. Findings, clinical impression and plan of treatment have been discussed with patient/family. Understanding of current findings and recommendations has been acknowledged by them and there is agreement regarding disposition and follow-up. - Vital Signs Vital signs: Temp Pulse Resp BP Pulse Ox 97.8 F 81 20 126/57 H 98 05/22/20 06:22 05/22/20 06:22 05/22/20 06:22 05/22/20 06:22 05/22/20 06:22 - Laboratory Result Diagrams: 05/22/20 07:00 Laboratory results interpreted by me: 05/22/20 07:00 Hgb 11.9 L MCH 26.5 L RDW 23.5 H Discharge - Discharge Clinical Impression: Bleeding from varicose veins of left lower extremity Condition: Stable Disposition: HOME, SELF-CARE Additional Instructions: Varicose Veins You have varicose veins. These are veins that bulge out under the skin. They develop when the valves in the veins fail. These valves normally keep blood moving upstream towards the heart. Without the valves, the pressure of the blood expands and weakens the veins. Varicose veins may simply be unsightly. But often they cause aching pains in the legs, especially after standing. There may be itching and irritation. Occasionally a vein may become clotted, with redness, tenderness, and swelling. Elevate your legs periodically during the day. Support hose can help. Don't rub or scratch at bulging veins -- this makes them worse. Don't sit with your legs crossed. Avoid standing in one place for more than a few minutes. Walking reduces the pressure in the veins. If varicose veins continue to cause severe symptoms, an operation to remove them ("vein stripping") might help. Call the doctor or return if there is increased swelling, redness, or fever, if there is general leg pain, or if a varicose veins bleeds and won't stop after 15 minutes of direct pressure. Keep Band-Aid in place until you see your doctor. You should arrange a follow- up visit with your doctor within the next 24 hours. Temporarily stop taking aspirin. Add Lasix 20 mg daily. Prescriptions: Furosemide [Lasix 20 mg Tablet] 20 mg PO QAM #30 tablet Referrals: SUSANNE GLASS MD [Primary Care Provider] - Follow up as needed
[2020-05-22 07:29] LABS: PROTHROMBIN TIME 13.4 SEC (11.4-15.4)
[2020-05-22 07:30] LABS: ABSOLUTE EOSINOPHILS # (AUTO) 0.1 10^3/uL (0.0-0.6); ABSOLUTE LYMPHOCYTES (AUTO) 1.8 10^3/uL (0.5-4.7); ABSOLUTE MONOCYTES (AUTO) 0.5 10^3/uL (0.1-1.4); ABSOLUTE NEUT (AUTO) 5.6 10^3/uL (1.7-8.2); BASOPHILS % (AUTO) 0.4 % (0-2); EOSINOPHILS % (AUTO) 1.3 % (0-6); HEMOGLOBIN 11.9 g/dL (12.0-15.5); LYMPHOCYTES % (AUTO) 22.2 % (13-45); MEAN CORPUSCULAR HEMOGLOBIN 26.5 pg (27.0-33.4); MEAN CORPUSCULAR HGB CONC 33.2 g/dL (32.0-36.0); MEAN CORPUSCULAR VOLUME 80 fl (80-97); MONOCYTES % (AUTO) 5.9 % (3-13); PARTIAL THROMBOPLASTIN TIME 27.4 SEC (23.5-35.8); PLATELET COUNT 304 10^3/uL (150-450); RED BLOOD COUNT 4.51 10^6/uL (3.72-5.28); RED CELL DISTRIBUTION WIDTH 23.5 % (11.5-14.0); SEGMENTED NEUTROPHILS % (AUTO) 70.2 % (42-78); TOTAL CELLS COUNTED % (AUTO) 100 %; WHITE BLOOD COUNT 8.1 10^3/uL (4.0-10.5)
[2020-05-22 08:01] LABS: PLATELET COMMENT ADEQUATE; SCHISTOCYTES SLIGHT
[2020-05-22 08:02] LABS: OVALOCYTES 1+; POIKILOCYTOSIS 1+
[2020-05-22 08:39] VITALS: BP 125/67
== END 2020-05-22 08:46 | disposition home or self-care (01) ==
LOC: ER 02:25
DX: I83.892 Varicose veins of left lower extremity with other complications (principal); I83.91 Asymptomatic varicose veins of right lower extremity; M25.50 Pain in unspecified joint; E11.9 Type 2 diabetes mellitus without complications; I10 Essential (primary) hypertension; Z86.73 Personal history of transient ischemic attack (TIA), and cerebral infarction without residual deficits; Z79.82 Long term (current) use of aspirin; Z79.899 Other long term (current) drug therapy; Z87.891 Personal history of nicotine dependence
CPT/HCPCS: 36415; 85025; 85610; 85730; 99284

== ENCOUNTER → 2020-05-30 | Outpatient (CLI) | payer BC ==
[2020-05-30 09:58] LABS: CHOLESTEROL 139.45 mg/dL (0-200); TRIGLYCERIDES 184 mg/dL (<150)
[2020-05-30 10:09] LABS: DIRECT LDL 74 mg/dL (<100)
[2020-05-30 10:12] LABS: VLDL CHOLESTEROL 36.8 mg/dL (10-31)
--- OUTSIDE RECORDS SUMMARY | 2020-05-31 18:02 | XMS REPORT ---
:1965 [facility] Address [facility] [address] [place] [address] Care Team Providers Name Role Phone Leandro Smith Attending Clinician Unavailable Jerome Smith Attending Clinician Unavailable Allergies, Adverse Reactions, Alerts This patient has no known allergies or adverse reactions. Medications Ordered Filled Start Stop Current Ordering Indication Dosage Frequency Signature Comments Components Medication Medication Date Date Medication? Clinician (SIG) Name Name Feraheme 2020-1 No 510mg Feraheme 1-10 00:00: 00 Sodium 2020-1 No 50mL Sodium Chloride 1-10 Chloride 00:00: 00 Feraheme 2020-0 No 510mg Feraheme 8-25 00:00: 00 Sodium 2020-0 No 50mL Sodium Chloride 8-25 Chloride 00:00: 00 Sodium 2020-0 No 100mL Sodium Chloride 8-13 Chloride 00:00: 00 Feraheme 2020-0 2020- No 510mg Feraheme 8-13 11-10 00:00: 00:00 00 :00 Tresiba 2020-0 No 130unit Q1D Tresiba FlexTouch 2-07 (s) FlexTouch U-200 00:00: U-200 insulin 200 00 insulin unit/mL (3 200 mL) unit/mL (3 subcutaneou mL) s pen subcutaneo Inject 130 us pen units every Inject 130 day by units subcutaneou every day s route in by the evening subcutaneo for 90 us route days. in the evening for 90 days. Vitamin 2014- No 1000 Vitamin B-12 08-11 B-12 00:00: 00:00 00 :00 Vitamin 2014- No 1000 Vitamin B-12 08-11 B-12 00:00: 00:00 00 :00 Iron 2013 No 800mg Iron Dextran 2-26 Dextran 00:00: 00 Sodium 2013-07 No 30mL Sodium Chloride 2-26 Chloride 00:00: 00 Iron 2013-07 No 800mg Iron Dextran 2-19 Dextran 00:00: 00 Sodium 2013-07 No 30mL Sodium Chloride 2-19 Chloride 00:00: 00 Iron 2013-07 No 800mg Iron Dextran 2-12 Dextran 00:00: 00 Sodium 2013-07 No 30mL Sodium Chloride 2-12 Chloride 00:00: 00 Sodium 2013-07- No 280mL Sodium Chloride 2-05 11-10 Chloride 00:00: 00:00 00 :00 Iron 2013-07- No 25mg Iron Dextran 2-05 12-26 Dextran 00:00: 00:00 00 :00 Infed 2013-07- No 775mg Infed 2-05 12- 00:00: 00:00 00 :00 Cyanocobala 2013-07- No 1000 Cyanocobal min 1-18 08-03 echeverria 00:00: 15:47 00 :29 aspirin 81 No 1 Q1D aspirin 81 mg mg tablet,johnnie tablet,del yed release ayed Take 1 release tablet Take 1 every day tablet by oral every day route. by oral route. glimepiride No glimepirid 1 mg tablet e 1 mg take 1 tablet tablet take 1 daily tablet daily Tresiba No Tresiba FlexTouch FlexTouch U-100 U-100 insulin 100 insulin unit/mL (3 100 mL) unit/mL (3 subcutaneou mL) s pen 85 subcutaneo units q AM, us pen 85 10 units units q qHS AM, 10 units qHS Trulicity No Trulicity 0.75 mg/0.5 0.75 mL mg/0.5 mL subcutaneou subcutaneo s pen us pen injector injector 1.5 iu sq 1.5 iu sq wekly wekly Carafate No Carafate 100 mg/mL 100 mg/mL oral oral suspension suspension 15 mL po 15 mL po once daily once daily Aspirin Yes 1 Hydrocodone Yes 1 -Acetaminop hen Lantus Yes 60U Lipitor Yes 1 Lisinopril- Yes 1 Hydrochloro thiazide MetFORMIN Yes 1 HCl Requip Yes 1 Restoril Yes 1 Synthroid Yes 1 Ozempic (1 Yes 1 MG/DOSE) atorvastati No 1 Q1D atorvastat n 80 mg in 80 mg tablet Take tablet 1 tablet Take 1 every day tablet by oral every day route. by oral route. diclofenac No diclofenac 1 % topical 1 % gel as topical needed gel as needed Jardiance No 1 Q1D Jardiance 25 mg 25 mg tablet Take tablet 1 tablet Take 1 every day tablet by oral every day route. by oral route. levothyroxi No 1 Q1D levothyrox ne 25 mcg ine 25 mcg tablet Take tablet 1 tablet Take 1 every day tablet by oral every day route. by oral route. lisinopril No 1 Q1D lisinopril 20 20 mg-hydrochl mg-hydroch orothiazide lorothiazi 12.5 mg de 12.5 mg tablet Take tablet 1 tablet Take 1 every day tablet by oral every day route. by oral route. meloxicam No meloxicam 7.5 mg 7.5 mg tablet Take tablet 1 tablet Take 1 every day tablet by oral every day route. by oral route. metformin No 1 BID metformin 1,000 mg 1,000 mg tablet Take tablet 1 tablet Take 1 twice a day tablet by oral twice a route. day by oral route. Novolog No Novolog Flexpen Flexpen U-100 U-100 Insulin Insulin aspart 100 aspart 100 unit/mL (3 unit/mL (3 mL) mL) subcutaneou subcutaneo s sliding us sliding scale (1/50 scale over 150) (1/50 over Up to 50 150) Up to units/day 50 units/day nystatin No nystatin 100,000 100,000 unit/gram unit/gram topical topical powder as powder as needed needed ropinirole No 1 Q1D ropinirole 0.5 mg 0.5 mg tablet Take tablet 1 tablet Take 1 every day tablet by oral every day route in by oral the route in evening. the evening. temazepam No temazepam 30 mg 30 mg capsule capsule Take 1 Take 1 capsule capsule every day every day by oral by oral route at route at bedtime. bedtime. Tresiba No 150unit Q1D Tresiba FlexTouch (s) FlexTouch U-200 U-200 insulin 200 insulin unit/mL (3 200 mL) unit/mL (3 subcutaneou mL) s pen subcutaneo Inject 130 us pen units every Inject 130 day by units subcutaneou every day s route in by the evening subcutaneo for 90 us route days. in the evening for 90 days. Trulicity No .5mL Q1W Trulicity 1.5 mg/0.5 1.5 mg/0.5 mL mL subcutaneou subcutaneo s pen us pen injector injector Inject 0.5 Inject 0.5 mL every mL every week by week by subcutaneou subcutaneo s route. us route. Synjardy No 1 BID Synjardy 12.5 12.5 mg-1,000 mg mg-1,000 tablet Take mg tablet 1 tablet Take 1 twice a day tablet by oral twice a route. day by oral route. 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 Mellitus 00:00: uncontrolle Uncontrolle 00 d d Long-term Long-term Problem Active current use Current Use 1-14 of insulin of Insulin 00:00: 00 Diabetic Diabetic Problem Active peripheral Peripheral 1-11 neuropathy Neuropathy 00:00: 00 Hyperlipide Hyperlipide Problem Active kit kit 07-30 00:00: 00 Anxiety Anxiety Problem Active 07-30 00:00: 00 Hypertensiv Hypertensiv Problem Active e disorder e Disorder - 00:00: 00 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 00:00: 00 Cerebrovasc Cerebrovasc Problem Active ular ular 07-30 accident Accident 00:00: 00 Sleep apnea Sleep Apnea Problem Active 07-30 00:00: 00 Spasm Spasm Problem Active 12-15 00:00: 00 Muscle Muscle Problem Active weakness Weakness 12-15 00:00: 00 Abnormal Abnormal Problem Active posture Posture 5-29 00:00: 00 Pain of Pain of Problem Active 2018- left Left 5-29 shoulder Shoulder 00:00: joint Joint 00 Obstructive Obstructive Problem Active 2018- sleep apnea Sleep Apnea 5-15 syndrome Syndrome 00:00: 00 Cervical Cervical Problem Active disc Disc 5-15 prolapse Prolapse 00:00: with with 00 radiculopat Radiculopat hy hy Degeneratio Degeneratio Problem Active n of n of 5-15 cervical Cervical 00:00: interverteb Interverteb 00 ral disc ral Disc 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 in 5-15 cervical Cervical 00:00: region Region 00 Neck pain Neck Pain Problem Active 5-15 00:00: 00 Plantar Plantar Problem Active 2018- fasciitis Fasciitis 5-15 00:00: 00 Disorder of Disorder of Problem Active thyroid Thyroid 10-14 gland Gland 00:00: 00 Diabetes Diabetes Problem Active mellitus Mellitus 10-14 00:00: 00 Anemia Anemia Problem Active 10-14 00:00: 00 Insomnia Insomnia Problem Active 3 00:00: 00 Restless Restless Problem Active legs Legs 3- 00:00: 00 Hypertensiv Hypertensiv Problem Active e disorder e Disorder 10-14 00:00: 00 Heart Heart Problem Active murmur Murmur 10-14 00:00: 00 Iron Iron Diagnosis active 2013-07 deficiency deficiency 1-18 anemia anemia 00:00: secondary secondary 00 to to inadequate inadequate dietary dietary iron intake iron intake Other Other Diagnosis active 2013-07 vitamin b12 vitamin b12 1-18 deficiency deficiency 00:00: anemia anemia 00 History of History of Problem Active bariatric Bariatric 07-20 surgical Surgical 00:00: procedure Procedure 00 Procedures Procedure Date / Time Performed Performing Clinician Devic e colonoscopy 2017-07-20 00:00:00 Hysterectomy 2004-07-20 00:00:00 TOTAL HYSTERECTOMY 2003-07-20 00:00:00 Gallbladder Surgery 2002-07-20 00:00:00 LAP GASTRIC BYPASS/KEITH-EN-Y 2002-07-20 00:00:00 Gastric bypass 2002-07-20 00:00:00 Cholecystectomy 2002-07-20 00:00:00 Gastric Bypass 2002-07-20 00:00:00 Tonsillectomy Gallbladder hysterectomy Tonsillectomy Results Test Description Test Time Test Comments Text Results Atomic Results Result Comments Glucose 2020-05-15 14:55:00 Test Item Value Reference Range Comments Glucose (test code = Glucose) 274.0000 mg/dL 65.0000-99.0000 BUN (test code = BUN) 19.0000 mg/dL 6.0000-24.0000 Creatinine (test code = Creatinine) 0.9600 mg/dL 0.5700-1.000 0 UIBC (test code = UIBC) 353.0000 131.0000-425.0000 TIBC (test code = TIBC) 403.0000 250.0000-450.0000 Iron, Total (test code = Iron, Total) 50.0000 27.0000-15 9.0000 Protein, Total (test code = Protein, Total) 7.0000 g/dL 6.00 00-8.5000 Globulin (test code = Globulin) 2.7000 g/dL 1.5000-4.5000 Albumin (test code = Albumin) 4.3000 g/dL 3.8000-4.9000 Calcium (test code = Calcium) 9.7000 mg/dL 8.7000-10.2000 Bilirubin, Total (test code = Bilirubin, Total) 0.2000 mg/dL 0.0000-1.2000 Sodium (test code = Sodium) 139.0000 mmol/L 134.0000-144.0000 Ferritin (test code = Ferritin) 57.0000 ng/mL 15.0000-150.0000 Cr Clearance (Est) (test code = Cr Clearance 114.3600 75. 0000-115.0000 (Est)) Alkaline Phosphatase (test code = Alkaline 94.0000 39.00 00-117.0000 Phosphatase) ALT (SGPT) (test code = ALT (SGPT)) 22.0000 0.0000-32.00 00 AST (SGOT) (test code = AST (SGOT)) 13.0000 0.0000-40.00 00 CO2 (test code = CO2) 22.0000 mmol/L 20.0000-29.0000 Chloride (test code = Chloride) 99.0000 mmol/L 96.0000-106.0000 Potassium (test code = Potassium) 4.2000 mmol/L 3.5000-5.2000 % Iron Saturation (test code = % Iron Saturation) 12.0000 % 15.0000-55.0000 BUN/Creat Ratio (test code = BUN/Creat Ratio) 20.0000 9. 0000-23.0000 A/G Ratio (test code = A/G Ratio) 1.6000 1.2000-2.1999 eGFR Lcc-Dtfowdg-Anxdkuwa (test code = eGFR 66.0000 Sdf-Ljgidok-Aaotcgdu) eGFR -Filipino (test code = eGFR 76.0000 -Filipino) [id number] 14:55:00 Test Item Value Reference Range Comments Creatinine (test code = Creatinine) 0.9600 mg/dL 0.5700-1.000 0 Cr Clearance (Est) (test code = Cr 114.3600 75.0000-115.0 000 Clearance (Est)) Glucose (test code = Glucose) 274.0000 mg/dL 65.0000-99.0000 BUN (test code = BUN) 19.0000 mg/dL 6.0000-24.0000 eGFR Exi-Ducrvxw-Tvuxawae (test code = 66.0000 eGFR Gun-Thqlndz-Zdyjhxbl) eGFR -Filipino (test code = eGFR 76.0000 -Filipino) BUN/Creat Ratio (test code = BUN/Creat 20.0000 9.0000-23 .0000 Ratio) Sodium (test code = Sodium) 139.0000 mmol/L 134.0000-144.0000 Potassium (test code = Potassium) 4.2000 mmol/L 3.5000-5.2000 Chloride (test code = Chloride) 99.0000 mmol/L 96.0000-106.0000 CO2 (test code = CO2) 22.0000 mmol/L 20.0000-29.0000 Calcium (test code = Calcium) 9.7000 mg/dL 8.7000-10.2000 Protein, Total (test code = Protein, 7.0000 g/dL 6.0000-8.50 00 Total) Albumin (test code = Albumin) 4.3000 g/dL 3.8000-4.9000 Globulin (test code = Globulin) 2.7000 g/dL 1.5000-4.5000 A/G Ratio (test code = A/G Ratio) 1.6000 1.2000-2.2000 Bilirubin, Total (test code = Bilirubin, 0.2000 mg/dL 0.0000- 1.2000 Total) Alkaline Phosphatase (test code = Alkaline 94.0000 39.00 00-117.0000 Phosphatase) AST (SGOT) (test code = AST (SGOT)) 13.0000 0.0000-40.00 00 ALT (SGPT) (test code = ALT (SGPT)) 22.0000 0.0000-32.00 00 Iron, Total (test code = Iron, Total) 50.0000 27.0000-15 9.0000 TIBC (test code = TIBC) 403.0000 250.0000-450.0000 UIBC (test code = UIBC) 353.0000 131.0000-425.0000 % Iron Saturation (test code = % Iron 12.0000 % 15.0000-55 .0000 Saturation) Ferritin (test code = Ferritin) 57.0000 ng/mL 15.0000-150.0000 [id number] 15:41:00 Test Item Value Reference Range Comments WBC (test code = WBC) 9.7000 4.0000-10.0000 Lymphocytes % (test code = Lymphocytes %) 20.5000 % 22.400 0-43.6000 MID% (test code = MID%) 5.1000 % 1.2000-11.2000 Neutrophils % (test code = Neutrophils %) 74.4000 % 48.900 0-69.9000 Lymphocytes (test code = Lymphocytes) 2.0000 1.2000-3.2 000 MID (test code = MID) 0.5000 0.1000-1.1000 Neutrophils (test code = Neutrophils) 7.2000 1.5000-6.7 000 RBC (test code = RBC) 4.9400 3.7000-4.9000 HGB (test code = HGB) 12.3000 g/dL 11.2000-18.0000 HCT (test code = HCT) 38.6000 % 34.0000-44.0000 MCV (test code = MCV) 78.1000 fL 80.0000-94.0000 MCH (test code = MCH) 24.9000 pg 27.0000-34.0000 MCHC (test code = MCHC) 31.9000 g/dL 31.5000-36.0000 RDW (test code = RDW) 21.9000 11.0000-18.0000 PLT (test code = PLT) 332.0000 140.0000-440.0000 MPV (test code = MPV) 7.0000 fL 6.8000-10.6000 [id number] 15:41:00 Test Item Value Reference Range Comments RDW (test code = RDW) 21.9000 11.0000-18.0000 MID% (test code = MID%) 5.1000 % 1.2000-11.2000 Lymphocytes % (test code = Lymphocytes %) 20.5000 % 22.400 0-43.6000 HCT (test code = HCT) 38.6000 % 34.0000-44.0000 Neutrophils % (test code = Neutrophils %) 74.4000 % 48.900 0-69.9000 MCV (test code = MCV) 78.1000 fL 80.0000-94.0000 MCH (test code = MCH) 24.9000 pg 27.0000-34.0000 MPV (test code = MPV) 7.0000 fL 6.8000-10.6000 MCHC (test code = MCHC) 31.9000 g/dL 31.5000-36.0000 HGB (test code = HGB) 12.3000 g/dL 11.2000-18.0000 RBC (test code = RBC) 4.9400 3.7000-4.9000 WBC (test code = WBC) 9.7000 4.0000-10.0000 Neutrophils (test code = Neutrophils) 7.2000 1.5000-6.7 000 Lymphocytes (test code = Lymphocytes) 2.0000 1.2000-3.2 000 MID (test code = MID) 0.5000 0.1000-1.1000 PLT (test code = PLT) 332.0000 140.0000-440.0000 [id number] 12:34:00 Test Item Value Reference Range Comments Creatinine (test code = Creatinine) 0.8000 mg/dL 0.5700-1.000 0 Cr Clearance (Est) (test code = Cr 139.2300 75.0000-115.0 000 Clearance (Est)) Glucose (test code = Glucose) 313.0000 mg/dL 65.0000-99.0000 BUN (test code = BUN) 13.0000 mg/dL 6.0000-24.0000 eGFR Zgo-Xgautgm-Ltpxlknl (test code = 82.0000 eGFR Mdt-Szgjtgd-Brdtqqfx) eGFR -Filipino (test code = eGFR 95.0000 -Filipino) BUN/Creat Ratio (test code = BUN/Creat 16.0000 9.0000-23 .0000 Ratio) Sodium (test code = Sodium) 139.0000 mmol/L 134.0000-144.0000 Potassium (test code = Potassium) 4.7000 mmol/L 3.5000-5.2000 Chloride (test code = Chloride) 97.0000 mmol/L 96.0000-106.0000 CO2 (test code = CO2) 25.0000 mmol/L 20.0000-29.0000 Calcium (test code = Calcium) 8.8000 mg/dL 8.7000-10.2000 Protein, Total (test code = Protein, 5.8000 g/dL 6.0000-8.50 00 Total) Albumin (test code = Albumin) 3.6000 g/dL 3.8000-4.9000 Globulin (test code = Globulin) 2.2000 g/dL 1.5000-4.5000 A/G Ratio (test code = A/G Ratio) 1.6000 1.2000-2.2000 Bilirubin, Total (test code = Bilirubin, 0.2000 mg/dL 0.0000- 1.2000 Total) Alkaline Phosphatase (test code = 85.0000 39.0000-117.00 00 Alkaline Phosphatase) AST (SGOT) (test code = AST (SGOT)) 14.0000 0.0000-40.00 00 ALT (SGPT) (test code = ALT (SGPT)) 15.0000 0.0000-32.00 00 Iron, Total (test code = Iron, Total) 16.0000 27.0000-15 9.0000 TIBC (test code = TIBC) 421.0000 250.0000-450.0000 UIBC (test code = UIBC) 405.0000 131.0000-425.0000 % Iron Saturation (test code = % Iron 4.0000 % 15.0000-55 .0000 Saturation) Vitamin B12 (test code = Vitamin B12) 243.0000 pg/mL 232.0000-1 245.0000 Folate (test code = Folate) 12.9000 ng/mL Vitamin D (25-Hydroxy) (test code = 28.5000 ng/mL 30.0000-100. 0000 Vitamin D (25-Hydroxy)) Ferritin (test code = Ferritin) 7.0000 ng/mL 15.0000-150.0000 [id number] 16:10:00 Test Item Value Reference Range Comments WBC (test code = WBC) 11.1999 4.0000-10.0000 Lymphocytes % (test code = Lymphocytes %) 17.4000 % 22.400 0-43.6000 MID% (test code = MID%) 4.1000 % 1.1999- Neutrophils % (test code = Neutrophils %) 78.5000 % 48.900 0-69.9000 Lymphocytes (test code = Lymphocytes) 1.9000 1.2000-3.2 000 MID (test code = MID) 0.6000 0.1000-1.1000 Neutrophils (test code = Neutrophils) 8.7000 1.5000-6.7 000 RBC (test code = RBC) 4.0700 3.7000-4.9000 HGB (test code = HGB) 8.4000 g/dL 11.1999-18.0000 HCT (test code = HCT) 26.4000 % 34.0000-44.0000 MCV (test code = MCV) 64.9000 fL 80.0000-94.0000 MCH (test code = MCH) 20.7000 pg 27.0000-34.0000 MCHC (test code = MCHC) 31.9000 g/dL 31.5000-36.0000 RDW (test code = RDW) 16.5000 11.0000-18.0000 PLT (test code = PLT) 396.0000 140.0000-440.0000 MPV (test code = MPV) 6.7000 fL 6.8000-10.6000 Lymphocytes %2020-02-20 16:10:00 Test Item Value Reference Range Comments Lymphocytes % (test code = Lymphocytes %) 17.4000 % 22.400 0-43.6000 MID% (test code = MID%) 4.1000 % .1999-.1999 RDW (test code = RDW) 16.5000 11.0000-18.0000 Neutrophils % (test code = Neutrophils %) 78.5000 % 48.900 0-69.9000 HCT (test code = HCT) 26.4000 % 34.0000-44.0000 MCH (test code = MCH) 20.7000 pg 27.0000-34.0000 MCHC (test code = MCHC) 31.9000 g/dL 31.5000-36.0000 MPV (test code = MPV) 6.7000 fL 6.8000-10.6000 HGB (test code = HGB) 8.4000 g/dL 11.1999-18.0000 MCV (test code = MCV) 64.9000 fL 80.0000-94.0000 WBC (test code = WBC) 4.0000-10.0000 RBC (test code = RBC) 4.0700 3.7000-4.9000 PLT (test code = PLT) 396.0000 140.0000-440.0000 Neutrophils (test code = Neutrophils) 8.7000 1.5000-6.7 000 MID (test code = MID) 0.6000 0.1000-1.1000 Lymphocytes (test code = Lymphocytes) 1.9000 1.2000-3.2 000 C peptide [Mass/volume] in Serum or [id number] 00:00:00 Test Item Value Reference Range Comments C peptide [Mass/volume] in Serum or Plasma (test 6.6 NG/mL 1.1-4.4 code = 1985-) Iron, [id number] 16:02:00 Test Item Value Reference Range Comments Iron, Total (test code = Iron, Total) 45.0000 35.0000-15 5.0000 TIBC (test code = TIBC) 356.0000 250.0000-450.0000 UIBC (test code = UIBC) 311.0000 150.0000-375.0000 % Iron Saturation (test code = % Iron 13.0000 % 15.0000-55 .0000 Saturation) Ferritin (test code = Ferritin) 435.0000 ng/mL 15.0000-150.0000 [id number] 16:02:00 Test Item Value Reference Range Comments TIBC (test code = TIBC) 356.0000 250.0000-450.0000 UIBC (test code = UIBC) 311.0000 150.0000-375.0000 Iron, Total (test code = Iron, Total) 45.0000 35.0000-15 5.0000 Ferritin (test code = Ferritin) 435.0000 ng/mL 15.0000-150.0000 % Iron Saturation (test code = % Iron 13.0000 % 15.0000-55 .0000 Saturation) [id number] 04:03:00 Test Item Value Reference Range Comments WBC (test code = WBC) 12.0000 4.2000-10.0000 Lymphocytes % (test code = Lymphocytes %) 18.6000 % 22.400 0-43.6000 MID% (test code = MID%) 5.2000 % 1.1999-11.1999 Neutrophils % (test code = Neutrophils %) 76.2000 % 48.900 0-69.9000 Lymphocytes (test code = Lymphocytes) 2.2000 1.2000-3.2 000 MID (test code = MID) 0.7000 0.1000-1.1000 Neutrophils (test code = Neutrophils) 9.1000 1.5000-6.7 000 RBC (test code = RBC) 4.4000 4.5000-6.3000 HGB (test code = HGB) 13.0000 g/dL 14.0000-18.0000 HCT (test code = HCT) 39.8000 % 41.0000-51.0000 MCV (test code = MCV) 90.6000 fL 80.0000-94.0000 MCH (test code = MCH) 29.7000 pg 27.0000-34.0000 MCHC (test code = MCHC) 32.8000 g/dL 31.5000-36.0000 RDW (test code = RDW) 14.3000 11.0000-18.0000 PLT (test code = PLT) 281.0000 140.0000-440.0000 MPV (test code = MPV) 6.5000 fL 6.8000-10.6000 [id number] 04:03:00 Test Item Value Reference Range Comments Creatinine (test code = Creatinine) 0.5000 mg/dL 0.5000-1.200 0 Cr Clearance (Est) (test code = Cr 231.8200 75.0000-115.0 000 Clearance (Est)) Glucose (test code = Glucose) 280.0000 mg/dL 70.0000-118.0000 BUN (test code = BUN) 13.0000 mg/dL 7.0000-22.0000 Sodium (test code = Sodium) 138.0000 mmol/L 128.0000-145.0000 Potassium (test code = Potassium) 3.6000 mmol/L 3.6000-5.1000 Chloride (test code = Chloride) 98.0000 mmol/L 96.0000-108.0000 CO2 (test code = CO2) 29.0000 mmol/L 18.0000-33.0000 Calcium (test code = Calcium) 9.5400 mg/dL 8.0000-10.3000 Alkaline Phosphatase (test code = Alkaline 97.0000 42.00 00-141.0000 Phosphatase) ALT (SGPT) (test code = ALT (SGPT)) 28.0000 10.0000-47.0 000 AST (SGOT) (test code = AST (SGOT)) 13.0000 11.0000-37.0 000 Bilirubin, Total (test code = Bilirubin, 0.3000 mg/dL 0.0000- 1.6000 Total) Albumin (test code = Albumin) 4.5000 g/dL 3.5000-5.5000 Protein, Total (test code = Protein, 7.5000 g/dL 6.4000-8.10 00 Total) [id number] 04:03:00 Test Item Value Reference Range Comments RDW (test code = RDW) 14.3000 11.0000-18.0000 HCT (test code = HCT) 39.8000 % 41.0000-51.0000 Lymphocytes % (test code = Lymphocytes %) 18.6000 % 22.400 0-43.6000 Neutrophils % (test code = Neutrophils %) 76.2000 % 48.900 0-69.9000 MID% (test code = MID%) 5.2000 % 1.2000-11.2000 MPV (test code = MPV) 6.5000 fL 6.8000-10.6000 MCV (test code = MCV) 90.6000 fL 80.0000-94.0000 MCH (test code = MCH) 29.7000 pg 27.0000-34.0000 HGB (test code = HGB) 13.0000 g/dL 14.0000-18.0000 MCHC (test code = MCHC) 32.8000 g/dL 31.5000-36.0000 Lymphocytes (test code = Lymphocytes) 2.2000 1.2000-3.2 000 MID (test code = MID) 0.7000 0.1000-1.1000 WBC (test code = WBC) 12.0000 4.2000-10.0000 PLT (test code = PLT) 281.0000 140.0000-440.0000 Neutrophils (test code = Neutrophils) 9.1000 1.5000-6.7 000 RBC (test code = RBC) 4.4000 4.5000-6.3000 [id number] 04:03:00 Test Item Value Reference Range Comments Chloride (test code = Chloride) 98.0000 mmol/L 96.0000-108.0000 AST (SGOT) (test code = AST (SGOT)) 13.0000 11.0000-37.0 000 CO2 (test code = CO2) 29.0000 mmol/L 18.0000-33.0000 Alkaline Phosphatase (test code = Alkaline 97.0000 42.00 00-141.0000 Phosphatase) ALT (SGPT) (test code = ALT (SGPT)) 28.0000 10.0000-47.0 000 Potassium (test code = Potassium) 3.6000 mmol/L 3.6000-5.1000 Sodium (test code = Sodium) 138.0000 mmol/L 128.0000-145.0000 Cr Clearance (Est) (test code = Cr 231.8200 75.0000-115.0 000 Clearance (Est)) Albumin (test code = Albumin) 4.5000 g/dL 3.5000-5.5000 Bilirubin, Total (test code = Bilirubin, 0.3000 mg/dL 0.0000- 1.6000 Total) Calcium (test code = Calcium) 9.5400 mg/dL 8.0000-10.3000 Protein, Total (test code = Protein, 7.5000 g/dL 6.4000-8.10 00 Total) Glucose (test code = Glucose) 280.0000 mg/dL 70.0000-118.0000 BUN (test code = BUN) 13.0000 mg/dL 7.0000-22.0000 Creatinine (test code = Creatinine) 0.5000 mg/dL 0.5000-1.200 0 [id number] 15:22:00 Test Item Value Reference Range Comments Creatinine (test code = Creatinine) 0.6900 mg/dL 0.5700-1.000 0 Cr Clearance (Est) (test code = Cr 165.2200 75.0000-115.0 000 Clearance (Est)) Glucose (test code = Glucose) 168.0000 mg/dL 65.0000-99.0000 BUN (test code = BUN) 13.0000 mg/dL 6.0000-24.0000 eGFR Fps-Vohpgge-Bzopdtmy (test code = 101.0000 eGFR Mrr-Soiruqn-Cqtvceep) eGFR -Filipino (test code = eGFR 117.0000 -Filipino) BUN/Creat Ratio (test code = BUN/Creat 19.0000 9.0000-23 .0000 Ratio) Sodium (test code = Sodium) 145.0000 mmol/L 134.0000-144.0000 Potassium (test code = Potassium) 4.0000 mmol/L 3.5000-5.2000 Chloride (test code = Chloride) 101.0000 mmol/L 97.0000-108.0000 CO2 (test code = CO2) 26.0000 mmol/L 18.0000-29.0000 Calcium (test code = Calcium) 9.6000 mg/dL 8.7000-10.2000 Protein, Total (test code = Protein, 6.5000 g/dL 6.0000-8.50 00 Total) Albumin (test code = Albumin) 4.2000 g/dL 3.5000-5.5000 Globulin (test code = Globulin) 2.3000 g/dL 1.5000-4.5000 A/G Ratio (test code = A/G Ratio) 1.8000 1.1000-2.5000 Bilirubin, Total (test code = Bilirubin, 0.2000 mg/dL 0.0000- 1.2000 Total) Alkaline Phosphatase (test code = Alkaline 99.0000 39.00 00-117.0000 Phosphatase) AST (SGOT) (test code = AST (SGOT)) 14.0000 0.0000-40.00 00 ALT (SGPT) (test code = ALT (SGPT)) 23.0000 0.0000-32.00 00 Iron, Total (test code = Iron, Total) 60.0000 35.0000-15 5.0000 TIBC (test code = TIBC) 310.0000 250.0000-450.0000 UIBC (test code = UIBC) 250.0000 150.0000-375.0000 % Iron Saturation (test code = % Iron 19.0000 % 15.0000-55 .0000 Saturation) Ferritin (test code = Ferritin) 473.0000 ng/mL 15.0000-150.0000 [id number] 15:22:00 Test Item Value Reference Range Comments TIBC (test code = TIBC) 310.0000 250.0000-450.0000 Iron, Total (test code = Iron, Total) 60.0000 35.0000-15 5.0000 UIBC (test code = UIBC) 250.0000 150.0000-375.0000 Albumin (test code = Albumin) 4.2000 g/dL 3.5000-5.5000 Creatinine (test code = Creatinine) 0.6900 mg/dL 0.5700-1.000 0 BUN (test code = BUN) 13.0000 mg/dL 6.0000-24.0000 Glucose (test code = Glucose) 168.0000 mg/dL 65.0000-99.0000 Protein, Total (test code = Protein, 6.5000 g/dL 6.0000-8.50 00 Total) Calcium (test code = Calcium) 9.6000 mg/dL 8.7000-10.2000 Bilirubin, Total (test code = Bilirubin, 0.2000 mg/dL 0.0000- 1.2000 Total) Globulin (test code = Globulin) 2.3000 g/dL 1.5000-4.5000 Ferritin (test code = Ferritin) 473.0000 ng/mL 15.0000-150.0000 Cr Clearance (Est) (test code = Cr 165.2200 75.0000-115.0 000 Clearance (Est)) Sodium (test code = Sodium) 145.0000 mmol/L 134.0000-144.0000 Potassium (test code = Potassium) 4.0000 mmol/L 3.5000-5.2000 Alkaline Phosphatase (test code = Alkaline 99.0000 39.00 00-117.0000 Phosphatase) CO2 (test code = CO2) 26.0000 mmol/L 18.0000-29.0000 AST (SGOT) (test code = AST (SGOT)) 14.0000 0.0000-40.00 00 Chloride (test code = Chloride) 101.0000 mmol/L 97.0000-108.0000 ALT (SGPT) (test code = ALT (SGPT)) 23.0000 0.0000-32.00 00 % Iron Saturation (test code = % Iron 19.0000 % 15.0000-55 .0000 Saturation) eGFR Tuz-Zytbxmp-Xyxjwavi (test code = 101.0000 eGFR Wsn-Lvuqiwj-Jjdfctdg) eGFR -Filipino (test code = eGFR 117.0000 -Filipino) A/G Ratio (test code = A/G Ratio) 1.8000 1.1000-2.5000 BUN/Creat Ratio (test code = BUN/Creat 19.0000 9.0000-23 .0000 Ratio) [id number] 03:08:00 Test Item Value Reference Range Comments WBC (test code = WBC) 8.6000 4.2000-10.0000 Lymphocytes % (test code = Lymphocytes %) 23.8000 % 22.400 0-43.6000 MID% (test code = MID%) 5.2000 % 1.2000-11.2000 Neutrophils % (test code = Neutrophils %) 71.0000 % 48.900 0-69.9000 Lymphocytes (test code = Lymphocytes) 2.0000 1.2000-3.2 000 MID (test code = MID) 0.5000 0.1000-1.1000 Neutrophils (test code = Neutrophils) 6.1000 1.5000-6.7 000 RBC (test code = RBC) 4.5700 4.5000-6.3000 HGB (test code = HGB) 11.9000 g/dL 14.0000-18.0000 HCT (test code = HCT) 36.8000 % 41.0000-51.0000 MCV (test code = MCV) 80.4000 fL 80.0000-94.0000 MCH (test code = MCH) 26.1000 pg 27.0000-34.0000 MCHC (test code = MCHC) 32.4000 g/dL 31.5000-36.0000 RDW (test code = RDW) 25.4000 11.0000-18.0000 PLT (test code = PLT) 238.0000 140.0000-440.0000 MPV (test code = MPV) 6.2000 fL 6.8000-10.6000 [id number] 03:08:00 Test Item Value Reference Range Comments HCT (test code = HCT) 36.8000 % 41.0000-51.0000 Lymphocytes % (test code = Lymphocytes %) 23.8000 % 22.400 0-43.6000 RDW (test code = RDW) 25.4000 11.0000-18.0000 MID% (test code = MID%) 5.2000 % 1.2000-11.2000 Neutrophils % (test code = Neutrophils %) 71.0000 % 48.900 0-69.9000 MCH (test code = MCH) 26.1000 pg 27.0000-34.0000 MCV (test code = MCV) 80.4000 fL 80.0000-94.0000 MPV (test code = MPV) 6.2000 fL 6.8000-10.6000 MCHC (test code = MCHC) 32.4000 g/dL 31.5000-36.0000 HGB (test code = HGB) 11.9000 g/dL 14.0000-18.0000 PLT (test code = PLT) 238.0000 140.0000-440.0000 WBC (test code = WBC) 8.6000 4.2000-10.0000 Lymphocytes (test code = Lymphocytes) 2.0000 1.2000-3.2 000 MID (test code = MID) 0.5000 0.1000-1.1000 RBC (test code = RBC) 4.5700 4.5000-6.3000 Neutrophils (test code = Neutrophils) 6.1000 1.5000-6.7 000 [id number] 04:09:00 Test Item Value Reference Range Comments WBC (test code = WBC) 13.9000 4.2000-10.0000 Lymphocytes % (test code = Lymphocytes %) 26.0000 % 22.400 0-43.6000 MID% (test code = MID%) 5.4000 % 1.2000-11.2000 Neutrophils % (test code = Neutrophils %) 68.6000 % 48.900 0-69.9000 Lymphocytes (test code = Lymphocytes) 3.6000 1.2000-3.2 000 MID (test code = MID) 0.7000 0.1000-1.1000 Neutrophils (test code = Neutrophils) 9.6000 1.5000-6.7 000 RBC (test code = RBC) 4.9700 4.5000-6.3000 HGB (test code = HGB) 9.8000 g/dL 14.0000-18.0000 HCT (test code = HCT) 31.2000 % 41.0000-51.0000 MCV (test code = MCV) 62.6000 fL 80.0000-94.0000 MCH (test code = MCH) 19.8000 pg 27.0000-34.0000 MCHC (test code = MCHC) 31.6000 g/dL 31.5000-36.0000 RDW (test code = RDW) 18.6000 11.0000-18.0000 PLT (test code = PLT) 420.0000 140.0000-440.0000 MPV (test code = MPV) 6.3000 fL 6.8000-10.6000 [id number] 00:00:00 Test Item Value Reference Range Comments Creatinine (test code = Creatinine) 0.5900 mg/dL 0.5700-1.000 0 Cr Clearance (Est) (test code = Cr 196.4500 75.0000-115.0 000 Clearance (Est)) Glucose (test code = Glucose) 158.0000 mg/dL 65.0000-99.0000 BUN (test code = BUN) 11.0000 mg/dL 6.0000-24.0000 eGFR Lkn-Eqgetne-Bggrkvdy (test code = 106.0000 eGFR Xlb-Ynhpzir-Saoyxdpm) eGFR -Filipino (test code = eGFR 123.0000 -Filipino) BUN/Creat Ratio (test code = BUN/Creat 19.0000 9.0000-23 .0000 Ratio) Sodium (test code = Sodium) 137.0000 mmol/L 134.0000-144.0000 Potassium (test code = Potassium) 3.8000 mmol/L 3.5000-5.2000 Chloride (test code = Chloride) 94.0000 mmol/L 97.0000-108.0000 CO2 (test code = CO2) 29.0000 mmol/L 18.0000-29.0000 Calcium (test code = Calcium) 10.0000 mg/dL 8.7000-10.2000 Protein, Total (test code = Protein, 7.4000 g/dL 6.0000-8.50 00 Total) Albumin (test code = Albumin) 4.5000 g/dL 3.5000-5.5000 Globulin (test code = Globulin) 2.9000 g/dL 1.5000-4.5000 A/G Ratio (test code = A/G Ratio) 1.6000 1.1000-2.5000 Bilirubin, Total (test code = Bilirubin, 0.2000 mg/dL 0.0000- 1.2000 Total) Alkaline Phosphatase (test code = Alkaline 120.0000 39.00 00-117.0000 Phosphatase) AST (SGOT) (test code = AST (SGOT)) 14.0000 0.0000-40.00 00 ALT (SGPT) (test code = ALT (SGPT)) 19.0000 0.0000-32.00 00 Iron, Total (test code = Iron, Total) 13.0000 35.0000-15 5.0000 TIBC (test code = TIBC) 508.0000 250.0000-450.0000 UIBC (test code = UIBC) 495.0000 150.0000-375.0000 % Iron Saturation (test code = % Iron 3.0000 % 15.0000-55 .0000 Saturation) Vitamin B12 (test code = Vitamin B12) 1116.0000 pg/mL 211.0000-9 46.0000 Folate (test code = Folate) 12.4000 ng/mL Vitamin D (25-Hydroxy) (test code = 21.5000 ng/mL 30.0000-100. 0000 Vitamin D (25-Hydroxy)) Ferritin (test code = Ferritin) 7.0000 ng/mL 15.0000-150.0000 A/G [id number] 00:00:00 Test Item Value Reference Range Comments A/G Ratio (test code = A/G Ratio) 1.6000 1.1000-2.5000 BUN/Creat Ratio (test code = BUN/Creat 19.0000 9.0000-23 .0000 Ratio) eGFR -Filipino (test code = eGFR 123.0000 -Filipino) eGFR Lvs-Uzvlhoc-Tjhwkcnp (test code = 106.0000 eGFR Uam-Mynxrms-Hxfusegm) % Iron Saturation (test code = % Iron 3.0000 % 15.0000-55 .0000 Saturation) Alkaline Phosphatase (test code = Alkaline 120.0000 39.00 00-117.0000 Phosphatase) ALT (SGPT) (test code = ALT (SGPT)) 19.0000 0.0000-32.00 00 AST (SGOT) (test code = AST (SGOT)) 14.0000 0.0000-40.00 00 Chloride (test code = Chloride) 94.0000 mmol/L 97.0000-108.0000 CO2 (test code = CO2) 29.0000 mmol/L 18.0000-29.0000 Potassium (test code = Potassium) 3.8000 mmol/L 3.5000-5.2000 Sodium (test code = Sodium) 137.0000 mmol/L 134.0000-144.0000 Cr Clearance (Est) (test code = Cr 196.4500 75.0000-115.0 000 Clearance (Est)) Ferritin (test code = Ferritin) 7.0000 ng/mL 15.0000-150.0000 Folate (test code = Folate) 12.4000 ng/mL Vitamin D (25-Hydroxy) (test code = 21.5000 ng/mL 30.0000-100. 0000 Vitamin D (25-Hydroxy)) Vitamin B12 (test code = Vitamin B12) 1116.0000 pg/mL 211.0000-9 46.0000 Protein, Total (test code = Protein, 7.4000 g/dL 6.0000-8.50 00 Total) Globulin (test code = Globulin) 2.9000 g/dL 1.5000-4.5000 Albumin (test code = Albumin) 4.5000 g/dL 3.5000-5.5000 Calcium (test code = Calcium) 10.0000 mg/dL 8.7000-10.2000 Bilirubin, Total (test code = Bilirubin, 0.2000 mg/dL 0.0000- 1.2000 Total) BUN (test code = BUN) 11.0000 mg/dL 6.0000-24.0000 Glucose (test code = Glucose) 158.0000 mg/dL 65.0000-99.0000 Creatinine (test code = Creatinine) 0.5900 mg/dL 0.5700-1.000 0 TIBC (test code = TIBC) 508.0000 250.0000-450.0000 UIBC (test code = UIBC) 495.0000 150.0000-375.0000 Iron, Total (test code = Iron, Total) 13.0000 35.0000-15 5.0000 Assessments Condition Name Status Diagnosis Date Treating Clinici an Type II diabetes mellitus uncontrolled Active 2020-03-20 0 15:42:20 Diabetic peripheral neuropathy Active 2020-03-29 15:42: 19 Long-term current use of insulin Active 2020-03-29 15:4 2:21 Body mass index 40+ - severely obese Active 2020-04-06 15:20:50 Type II diabetes mellitus uncontrolled Active 7 17:41:19 Long-term current use of insulin Active 2019-11-24 17:4 1:20 Type II diabetes mellitus uncontrolled Active 4 08:19:50 Long-term current use of insulin Active 2019-08-23 08:1 9:51 Type II diabetes mellitus uncontrolled Active 2019-07-20 4 16:06:44 Long-term current use of insulin Active 2019-08-02 18:0 8:19 Hyperlipidemia Active 2019-08-02 18:23:17 Hypertensive disorder Active 2019-08-02 18:25:13 Cervical disc prolapse with Active 2019-01-12 15:23:47 radiculopathy Pain of left shoulder joint Active 2019-01-12 15:23:48 Degeneration of cervical intervertebral Active 15:23:51 disc Spinal stenosis in cervical region Active 2019-01-12 15 :23:51 Spasm Active 2019-01-06 16:35:24 Neck pain Active 2019-01-06 16:35:24 Pain of left shoulder joint Active 2019-01-06 16:35:24 Cervical disc prolapse with Active 2019-01-06 16:35:24 radiculopathy Abnormal posture Active 2019-01-06 16:35:24 Muscle weakness Active 2019-01-06 16:35:24 Neck pain Active 2018-12-27 17:04:13 Pain of left shoulder joint Active 2018-12-27 17:04:13 Cervical disc prolapse with Active 2018-12-27 17:04:13 radiculopathy Abnormal posture Active 2018-12-27 17:04:13 Muscle weakness Active 2018-12-27 17:04:13 Spasm Active 2018-12-27 17:04:13 Neck pain Active 2018-12-23 16:25:35 Pain of left shoulder joint Active 2018-12-23 16:25:35 Cervical disc prolapse with Active 2018-12-23 16:25:35 radiculopathy Abnormal posture Active 2018-12-23 16:25:35 Muscle weakness Active 2018-12-23 16:25:35 Spasm Active 2018-12-23 16:25:35 Cervical disc prolapse with Active 2018-12-15 18:45:11 radiculopathy Neck pain Active 2018-12-15 18:45:17 Spasm Active 2018-12-15 18:46:10 Muscle weakness Active 2018-12-15 18:46:11 Abnormal posture Active 2018-12-15 18:46:12 Pain of left shoulder joint Active 2018-12-15 18:46:13 Neck pain Active 2018-12-01 14:18:06 Cervical disc prolapse with Active 2018-12-01 22:38:14 radiculopathy Degeneration of cervical intervertebral Active 22:38:14 disc Spinal stenosis in cervical region Active 2018-12-01 22 :38:14 Encounters Start End Encounter Admission Attending Care Care Encounter Date/Time Date/Time Type Type Clinicians Facility Department ID 2020-05-29 2020-05-29 Outpatient Mily Reeves [facility] n [id number] 00:00:00 00:00:00 [facility] 2020-05-17 2020-05-17 Outpatient MarcusMily lang [facility] n [id number] 00:00:00 00:00:00 [facility] 2020-05-15 2020-05-15 [facility] [id number] 00[facility]00:00 [facility] Center 2020-05-14 2020[facility]05-[facility] [id number] [facility]00 00:00:00 [facility] 2020-05-11 2020-05-11 [facility] [id number] [facility]:00 00:00:00 [facility] On[facility] On[facility] Center 2020-04-06 2020-04-06 Frida [place] [id number] 00:00:00 00:00:00 [facility] [id number] PA-C: [address] [employer], [place] [address], Ph. 2020-03-13 2020-03-13 Outpatient Marcusad, Demarcuser [facility] n [id number] 00:00:00 [facility] [place] 2020-03-08 2020-03-08 Outpatient Asaad, [facility] n [id number] 00:00:00 00:00:00 [facility] Medical Oncology Oncology [place] 2020-03-07 2020-03-07 Outpatient [facility] n [id number] 00:00:00 00:00:00 [facility] Medical Oncology Oncology Center [place] 2020-03-01 2020-03-01 Outpatient Marcusad, Demarcuser Demarcuser n [id number] 00:00:00 00:00:00 [facility] Medical Oncology Oncology [facility] [place] 2020-02-24 2020-02-24 Outpatient Southeaster [facility] n [id number] 00:00:00 00:00:00 [facility] Medical Oncology Oncology [place] 2020-02-22 2020-02-22 Outpatient Southeaster [facility] n [id number] 00:00:00 00:00:00 [facility] Medical Oncology Oncology [place] 2020-02-20 2020-02-20 Arlette, Mily Longoria rn [id number] 00:00:00 00:00:00 [facility] [place] 2020-01-11 2020-01-11 Outpatient Southeaster Demarcuser n [id number] 00:00:00 00:00:00 [facility] Medical Oncology Oncology [place] 2019-11-29 2019-11-29 Frida Basilia Justin Browneret [id number] 00:00:00 00:00:00 [facility] [id number] PA-C: [address] [employer] [facility], [place] [address], Ph. 2019-11-16 2019-11-16 Outpatient Demarcuser Demarcuser n [id number] 00:00:00 00:00:00 n Medical Medical Oncology Oncology Center Center 2019-11-10 2019-11-10 [facility] [place] n [id number] 00:00:00 00:00:00 n Medical Medical Oncology Oncology Center Center 2019-08-26 2019-08-26 Fridacornell Browneret [id number] 00:00:00 00:00:00 [facility] [id number] PA-C: [address], [place] [address], Ph. 2019-08-02 2019-08-02 Frida Anderson [place] [id number] 00:00:00 00:00:00 [facility] Medical [id number] PA-C: [address] [facility] [address], [place] [address], Ph. 2019-01-12 2019-01-12 Elian [place] [id number] 00:00:00 00:00:00 Enmanuel, Surgical Surgical [id number] MD: [facility], [address], [place] [address], Ph. 2019-01-06 2019-01-06 Cyndy Browneret [place] [id number] 00:00:00 00:00:00 Suzan, Surgical Surgical [id number] PT,DPT,CLT: Associates [address] [address], Ph. 2018-12-27 2018-12-27 Cyndy [place] [id number] 00:00:00 00:00:00 Suzan, Surgical Surgical [id number] PT,DPT,CLT: Associates [address] [address], Ph. 2018-12-23 2018-12-23 Cyndy Browneret [place] [id number] 00:00:00 00:00:00 Suzan, Surgical Surgical [id number] PT,DPT,CLT: [facility] [address] [place] [address], [place] [address], Ph. 2018-12-15 2018-12-15 Cyndy Anderson [id number] 00:00:00 00:00:00 Suzan, Surgical Surgical [id number] PT,DPT,CLT: [facility] [address] [place] [address], [place] [address], Ph. 2018-12-01 2018-12-01 Elian Marroquint [id number] 00:00:00 00:00:00 Enmanuel, Surgical Surgical [id number] MD: Mookie [facility], [address], [place] [address], Ph. 2015-02-09 2015-02-09 Outpatient Mily Cano n [id number] 00:00:00 00:00:00 [facility] Medical Medical Oncology Oncology [place] 2014-12-11 2014-12-11 Outpatient Jerome Demarcusadrián Demarcusadrián n [id number] 00:00:00 00:00:00 [facility] n Medical Medical Oncology Oncology [facility] [place] 2014-11-14 2014-11-14 Outpatient Demarcusadrián Demarcusadrián n [id number] 00:00:00 00:00:00 Medical Medical Oncology Oncology [facility] [place] 2014-11-10 2014-11-10 [facility] [id number] 00:00:00 00:00:00 Merissa [facility] [place] 2014-08-14 2014-08-14 Outpatient Demarcusadrián Demarcusadrián n [id number] 00:00:00 00:00:00 Medical Medical Oncology Oncology [facility] [place] 2014-08-11 2014-08-11 Jerome Cano [facility] 2 [id number] 00:00:00 00:00:00 [facility] [place] 2014-07-14 2014-07-14 Outpatient Jerome Demarcusadrián Demarcusadrián n [id number] 00:00:00 [facility] [place] 2014-07-10 2014-07-10 Outpatient Mily Demarcusadrián n [id number] 00:00:00 00:00:00 [facility] Oncology Oncology [facility] 2014-07-07 2014-07-07 Outpatient Mily Cano n [id number] 00:00:00 00:00:00 [facility] Oncology Oncology [facility] 2014-06-30 2014-06-30 Outpatient Mily Cano n [id number] 00:00:00 00:00:00 [facility] Oncology Oncology [facility] 2014-06-23 2014-06-23 Outpatient Mily Cano n [id number] 00:00:00 00:00:00 [facility] Oncology Oncology [facility] [place] 2014-06-21 2014-06-21 Outpatient Mily Minor n [id number] 00:00:00 00:00:00 [facility] Oncology Oncology [facility] 2014-06-14 2014-06-14 Outpatient Mily Minor n [id number] 00:00:00 00:00:00 [facility] Oncology Oncology [facility] 2014-06-07 2014-06-07 Outpatient Mily Minor n [id number] 00:00:00 00:00:00 [facility] Oncology Oncology [facility] 2014-06-06 2014-06-06 Kye Mily Cano 2 [id number] 00:00:00 00:00:00 Merissa [facility] Oncology Oncology [facility] 2014-05-17 2014-05-17 Outpatient Mily de dios [id number] 00:00:00 00:00:00 [facility] Immunizations Ordered Immunization Filled Immunization Date Status Commen ts Refusal Reason Name Name influenza, injectable, 2019-05-03 Completed quadrivalent 00:00:00 pneumococcal 2018-01-06 Completed polysaccharide PPV23 00:00:00 pneumococcal conjugate 2016-04-11 Completed PCV 13 00:00:00 Plan of Treatment Planned Activity Planned Date Details Comments Future Appointment 2020-07-06 15:20:00 Frida Flores, [address]; [place] [address] Social History Smoking Status Start Date Stop Date Yes - but quit (former) 2020-05-14 00:00:00 2020-05-14 00:00 :00 Social History Observation Description Sex Female Vital Signs Vital Name Observation Time Observation Value Comments BP Diastolic 2020-04-06 00:00:00 60 mm[Hg] Height 2020-04-06 00:00:00 64 [in_i] BMI (Body Mass Index) 2020-04-06 00:00:00 42.7 kg/m2 BP Systolic 2020-04-06 00:00:00 124 mm[Hg] Body Weight 2020-04-06 00:00:00 248.9 [lb_av] BP Diastolic 2019-11-29 00:00:00 61 mm[Hg] Height 2019-11-29 00:00:00 64 [in_i] BMI (Body Mass Index) 2019-11-29 00:00:00 42 kg/m2 BP Systolic 2019-11-29 00:00:00 115 mm[Hg] Body Weight 2019-11-29 00:00:00 244.8 [lb_av] BP Diastolic 2019-08-26 00:00:00 67 mm[Hg] Height 2019-08-26 00:00:00 64 [in_i] BMI (Body Mass Index) 2019-08-26 00:00:00 43 kg/m2 BP Systolic 2019-08-26 00:00:00 117 mm[Hg] Body Weight 2019-08-26 00:00:00 250.6 [lb_av] BP Diastolic 2019-08-02 00:00:00 68 mm[Hg] Height 2019-08-02 00:00:00 64 [in_i] BMI (Body Mass Index) 2019-08-02 00:00:00 43.7 kg/m2 BP Systolic 2019-08-02 00:00:00 137 mm[Hg] Body Weight 2019-08-02 00:00:00 254.6 [lb_av] Height 2019-01-12 00:00:00 64 [in_i] BMI (Body Mass Index) 2019-01-12 00:00:00 41.5 kg/m2 Body Weight 2019-01-12 00:00:00 242 [lb_av] BP Diastolic 2018-12-01 00:00:00 70 mm[Hg] Height 2018-12-01 00:00:00 64 [in_i] BMI (Body Mass Index) 2018-12-01 00:00:00 41.5 kg/m2 BP Systolic 2018-12-01 00:00:00 130 mm[Hg] Body Weight 2018-12-01 00:00:00 242 [lb_av] BMI 2020-05-29 14:52:48 42.6400 BP noel 2020-05-29 14:52:48 63.0000 mm[Hg] Bdy height 2020-05-29 14:52:48 64.0000 [in_i] SaO2% BldA PulseOx 2020-05-29 14:52:48 98.0000 % Heart rate 2020-05-29 14:52:48 94.0000 /min Resp rate 2020-05-29 14:52:48 18.0000 /min BP sys 2020-05-29 14:52:48 122.0000 mm[Hg] Body temperature 2020-05-29 14:52:48 98.1000 [degF] Weight 2020-05-29 14:52:48 248.4000 [lb_av] BMI 2020-05-14 15:52:31 42.4000 BP noel 2020-05-14 15:52:31 65.0000 mm[Hg] Bdy height 2020-05-14 15:52:31 64.0000 [in_i] SaO2% BldA PulseOx 2020-05-14 15:52:31 96.0000 % Heart rate 2020-05-14 15:52:31 90.0000 /min Resp rate 2020-05-14 15:52:31 16.0000 /min BP sys 2020-05-14 15:52:31 146.0000 mm[Hg] Body temperature 2020-05-14 15:52:31 97.5000 [degF] Weight 2020-05-14 15:52:31 247.0000 [lb_av] BMI 2020-03-13 14:49:06 42.6700 BP noel 2020-03-13 14:49:06 67.0000 mm[Hg] Bdy height 2020-03-13 14:49:06 64.0000 [in_i] SaO2% BldA PulseOx 2020-03-13 14:49:06 95.0000 % Heart rate 2020-03-13 14:49:06 87.0000 /min Resp rate 2020-03-13 14:49:06 16.0000 /min BP sys 2020-03-13 14:49:06 144.0000 mm[Hg] Body temperature 2020-03-13 14:49:06 97.4000 [degF] Weight 2020-03-13 14:49:06 248.6000 [lb_av] BMI 2020-03-01 12:57:38 42.7800 BP neol 2020-03-01 12:57:38 58.0000 mm[Hg] Bdy height 2020-03-01 12:57:38 64.0000 [in_i] SaO2% BldA PulseOx 2020-03-01 12:57:38 98.0000 % Heart rate 2020-03-01 12:57:38 100.0000 /min Resp rate 2020-03-01 12:57:38 20.0000 /min BP sys 2020-03-01 12:57:38 131.0000 mm[Hg] Body temperature 2020-03-01 12:57:38 97.7000 [degF] Weight 2020-03-01 12:57:38 249.2000 [lb_av] BMI 2020-02-20 15:46:52 43.0200 BP noel 2020-02-20 15:46:52 50.0000 mm[Hg] Bdy height 2020-02-20 15:46:52 64.0000 [in_i] Heart rate 2020-02-20 15:46:52 99.0000 /min Resp rate 2020-02-20 15:46:52 16.0000 /min BP sys 2020-02-20 15:46:52 132.0000 mm[Hg] Body temperature 2020-02-20 15:46:52 97.3000 [degF] Weight 2020-02-20 15:46:52 250.6000 [lb_av] BMI 2014-11-10 16:09:12 41.7500 BP noel 2014-11-10 16:09:12 70.0000 mm[Hg] Bdy height 2014-11-10 16:09:12 64.0000 [in_i] Heart rate 2014-11-10 16:09:12 87.0000 /min Resp rate 2014-11-10 16:09:12 18.0000 /min BP sys 2014-11-10 16:09:12 134.0000 mm[Hg] Body temperature 2014-11-10 16:09:12 98.5000 [degF] Weight 2014-11-10 16:09:12 243.2000 [lb_av] BMI 2014-08-11 15:22:13 41.0600 BP noel 2014-08-11 15:22:13 71.0000 mm[Hg] Bdy height 2014-08-11 15:22:13 64.0000 [in_i] Heart rate 2014-08-11 15:22:13 76.0000 /min Resp rate 2014-08-11 15:22:13 18.0000 /min BP sys 2014-08-11 15:22:13 125.0000 mm[Hg] Body temperature 2014-08-11 15:22:13 98.6000 [degF] Weight 2014-08-11 15:22:13 239.2000 [lb_av] BMI 2014-07-14 12:24:28 40.8500 BP noel 2014-07-14 12:24:28 68.0000 mm[Hg] Bdy height 2014-07-14 12:24:28 64.0000 [in_i] Heart rate 2014-07-14 12:24:28 90.0000 /min Resp rate 2014-07-14 12:24:28 22.0000 /min BP sys 2014-07-14 12:24:28 127.0000 mm[Hg] Body temperature 2014-07-14 12:24:28 98.2000 [degF] Weight 2014-07-14 12:24:28 238.0000 [lb_av] BP sys 2014-07-07 15:09:48 137.0000 mm[Hg] Body temperature 2014-07-07 15:09:48 97.9000 [degF] Weight 2014-07-07 15:09:48 237.8000 [lb_av] BMI 2014-07-07 15:09:48 40.8200 BP noel 2014-07-07 15:09:48 69.0000 mm[Hg] Bdy height 2014-07-07 15:09:48 64.0000 [in_i] Heart rate 2014-07-07 15:09:48 82.0000 /min Resp rate 2014-07-07 15:09:48 18.0000 /min BMI 2014-06-30 16:23:21 40.8900 BP noel 2014-06-30 16:23:21 65.0000 mm[Hg] Bdy height 2014-06-30 16:23:21 64.0000 [in_i] Heart rate 2014-06-30 16:23:21 83.0000 /min Resp rate 2014-06-30 16:23:21 18.0000 /min BP sys 2014-06-30 16:23:21 114.0000 mm[Hg] Body temperature 2014-06-30 16:23:21 97.9000 [degF] Weight 2014-06-30 16:23:21 238.2000 [lb_av] BMI 2014-06-06 13:22:37 40.8900 BP noel 2014-06-06 13:22:37 72.0000 mm[Hg] Bdy height 2014-06-06 13:22:37 64.0000 [in_i] Heart rate 2014-06-06 13:22:37 86.0000 /min Resp rate 2014-06-06 13:22:37 16.0000 /min BP sys 2014-06-06 13:22:37 135.0000 mm[Hg] Body temperature 2014-06-06 13:22:37 98.9000 [degF] Weight 2014-06-06 13:22:37 238.2000 [lb_av] Hospital Discharge Instructions 1. Type II diabetes mellitus uncontrolled HbA1c (hemoglobin A1c), blood glucose, fingerstick, blood Ozempic 1 mg/dose (2 mg/1.5 mL) subcutaneous pen injector Novolog Flexpen U-100 Insulin aspart 100 unit/mL (3 mL) subcutaneous 2. Diabetic peripheral neuropathy 3. Long-term current use of insulin 4. Body mass index 40+ - severely obese Discussion Note: None recorded. Patient educational handouts: No information available.1. Type II diabetes mellitus uncontrolled HbA1c (hemoglobin A1c), blood glucose, fingerstick, blood 2. Long-term current use of insulin Discussion Note: None recorded. Patient educational handouts: No information available.1. Type II diabetes mellitus uncontrolled HbA1c (hemoglobin A1c), blood glucose, fingerstick, blood C-peptide, serum Tresiba FlexTouch U-200 insulin 200 unit/mL (3 mL) subcutaneous pen Jardiance 25 mg tablet FreeStyle Juliet 14 Day Sensor kit FreeStyle Juliet 14 Day Chancellor 2.Long-term current use of insulin 3. Hyperlipidemia 4. Hypertensive disorder Discussion Note: None rec orded. Patient educational handouts: No information available.1. Neck pain 2. Cervical disc prolapse with radiculopathy 3. Degeneration of cervical intervertebraldisc 4. Spinal stenosis in cervical region Discussion Note Patient doing any heavy lifting moving his arm and formal physical therapy for the shoulder or losing range of motion we will start her for short therapy for the left shoulder and then will discuss findings after her MRI is obtained. Patient educational handouts: No information available.
== END ==
LOC: OD 08:20
PROVIDERS: ATTEND Family Medicine Geriatric Medicine
DX: I10 Essential (primary) hypertension (principal); E03.9 Hypothyroidism, unspecified; Z79.899 Other long term (current) drug therapy
CPT/HCPCS: 36415; 80061; 84443; 84460